=== PATIENT | female | born 1960 | race African-American/Black ===

== ENCOUNTER 2016-07-20 08:47 | Inpatient (IN) | payer OTHER ==
--- NOTE | 2016-07-20 09:13 | HP ---
CIWA Score - CIWA Score Nausea/Vomitin-Mild Nausea/No Vomiting Muscle Tremors: 4-Moderate,w/Arms Extend Anxiety: 4-Mod. Anxious/Guarded Agitation: 1-Slight > Activity Paroxysmal Sweats: 1-Minimal Palms Moist Orientation: 1-Uncertain about Date Tacttile Disturbances: 2-Mild Itch/Numbness/Burn Auditory Disturbances: 1-Very Mild Visual Disturbances: 1-Very Mild Sensitivity Headache: 1-Very Mild CIWA-Ar Total Score: 17 Admission ROS BHS - HPI Chief Complaint: I can't stop using, I need help Allergies/Adverse Reactions: Allergies Allergy/AdvReac Type Severity Reaction Status Date / Time Penicillins Allergy Severe Hives Verified 07/20/16 09:07 History of Present Illness: 55 yo woman here for detox from alcohol and cocaine - history of detox multiple times, no seizures. Last here 04/18/16-05/13/16 for rehab - states she did well for two weeks then relapsed. Exam Limitations: Clinical Condition - Ebola screening Have you traveled outside of the country in the last 21 days: No Have you had contact with anyone from an Ebola affected area: No Do you have a fever: No - Review of Systems Constitutional: Loss of Appetite, Night Sweats, Changes in sleep, Weakness EENT: reports: Blurred Vision Respiratory: reports: No Symptoms reported Cardiac: reports: No Symptoms Reported GI: reports: Nausea : reports: Frequency Musculoskeletal: reports: No Symptoms Reported Integumentary: reports: Dryness Neuro: reports: Headache Endocrine: reports: No Symptoms Reported Hematology: reports: No Symptoms Reported Psychiatric: reports: Judgement Intact, Mood/Affect Appropiate, Anxious, other ( hears voices but they are not telling her to harm herself or others) Other Systems: Reviewed and Negative Patient History - Patient Medical History Hx Anemia: No Hx Asthma: Yes (ON ALBUTEROL) Hx Chronic Obstructive Pulmonary Disease (COPD): No Hx Cancer: No Hx Cardiac Disorders: No Hx Congestive Heart Failure: No Hx Hypertension: No Hx Hypercholesterolemia: No Hx Pacemaker: No HX Cerebrovascular Accident: No Hx Seizures: No Hx Dementia: No Hx Diabetes: No Hx Gastrointestinal Disorders: No Hx Liver Disease: No Hx Genitourinary Disorders: No Hx Sexually Transmitted Disorders: No Hx Renal Disease (ESRD): No Hx Thyroid Disease: No Hx Human Immunodeficiency Virus (HIV): No Hx Hepatitis C: No Hx Depression: Yes Hx Suicide Attempt: Yes Hx Bipolar Disorder: No Hx Schizophrenia: Yes - Patient Surgical History Past Surgical History: Yes Hx Neurologic Surgery: No Hx Cataract Extraction: No Hx Cardiac Surgery: No Hx Lung Surgery: No Hx Breast Surgery: No Hx Breast Biopsy: No Hx Abdominal Surgery: No Hx Appendectomy: No Hx Cholecystectomy: No Hx Genitourinary Surgery: No Hx Section: No Hx Orthopedic Surgery: Yes (right heel surgery 2009 (?) ) Hx Hysterectomy: Yes (2013) Anesthesia Reaction: No - PPD History Previous Implant?: Yes Documented Results: Positive w/proof Implanted On Prior R Admission?: No PPD to be Administered?: No - Reproductive History Patient is a Female of Child Bearing Age (11 -55 yrs old): Yes - Smoking Cessation Smoking history: Current every day smoker Have you smoked in the past 12 months: Yes Aproximately how many cigarettes per day: 10 Cigars Per Day: 0 Hx Chewing Tobacco Use: No Initiated information on smoking cessation: Yes 'Breaking Loose' booklet given: 07/20/16 (given on floor) - Substance & Tx. History Hx Alcohol Use: Yes Hx Substance Use: Yes Substance Use Type: Alcohol, Cocaine Hx Substance Use Treatment: Yes (detox multiple times, rehab) - Substances Abused Alcohol Route: Oral Frequency: Daily Amount used: two 40 oz. HENNESEY; 1/2 pint liquor Age of first use: 16 Date of Last Use: 07/20/16 Cocaine Route: Smoking Frequency: 3-6 times per week Amount used: $50 Age of first use: 23 Date of Last Use: 07/19/16 Family Disease History - Family Disease History Family Disease History: Diabetes: Father (etoh), Other: Father, Mother ( ) Admission Physical Exam BHS - Vital Signs Vital Signs: Vital Signs Period Temp Pulse Resp BP Sys/Mendes Pulse Ox Last 24 Hr 97.7 F 51 20 96/66 - Physical General Appearance: Yes: Nourished, Appropriately Dressed, Mild Distress, Thin, Anxious HEENTM: Yes: Hearing grossly Normal, Normal ENT Inspection, Normocephalic, Normal Voice, Pharynx Normal Respiratory: Yes: Normal Breath Sounds, No Respiratory Distress Neck: Yes: No masses,lesions,Nodules, Supple Breast: Yes: Within Normal Limits Cardiology: Yes: Regular Rhythm, Regular Rate Abdominal: Yes: Flat, Soft Genitourinary: Yes: Frequency Back: Yes: Normal Inspection Musculoskeletal: Yes: full range of Motion, Gait Steady Extremities: Yes: Normal Inspection, Normal Range of Motion, Tremors Neurological: Yes: Fully Oriented, Alert, Motor Strength 5/5, Normal Mood/Affect Integumentary: Yes: Normal Color, Warm Lymphatic: Yes: Within Normal Limits - Addiitonal Findings: URINE DRUG SCREEN RESULTS Drug Screen Negative No Urine Drug Screen Results THC-Marijuana,MARGO-Cocaine,BZO-Benzodiazepines - Diagnostic (1) Alcohol dependence with withdrawal Current Visit: Yes Status: Chronic Qualifiers: Complication of substance-induced condition: uncomplicated Qualified Code(s): F10.230 - Alcohol dependence with withdrawal, uncomplicated (2) Asthma Current Visit: Yes Status: Chronic Qualifiers: Asthma severity: mild persistent Asthma complication type: with status asthmaticus Qualified Code(s): J45.32 - Mild persistent asthma with status asthmaticus (3) Cocaine dependence Current Visit: Yes Status: Chronic Qualifiers: Substance use status: uncomplicated Qualified Code(s): F14.20 - Cocaine dependence, uncomplicated (4) Nicotine dependence Current Visit: Yes Status: Chronic Qualifiers: Nicotine product type: cigarettes Substance use status: uncomplicated Qualified Code(s): F17.210 - Nicotine dependence, cigarettes, uncomplicated Cleared for Admission BHS - Detox or Rehab S Level of Care: Medically Managed Detox Regimen/Protocol: Librium S Breath Alcohol Content Breath Alcohol Content: 0
[2016-07-20 09:42] VITALS: BMI 19.2
[2016-07-20] MEDS ORDERED: LOPERAMIDE HCL 2 MG CAPSULE PO PRN (09:56)
[2016-07-20] MEDS ORDERED: MAG HYDROX/AL HYDROX/SIMETH 30 ML UNIT-DOSE CUP PO PRN (09:56)
[2016-07-20] MEDS ORDERED: chlordiazePOXIDE HCL 25 MG CAPSULE PO ONE ×2 (09:56→15:00)
[2016-07-20] MEDS ORDERED: MAGNESIUM CITRATE 300 ML BOTTLE PO PRN (09:56)
[2016-07-20] MEDS ORDERED: ACETAMINOPHEN 325 MG TABLET (FP) PO PRN (09:56)
[2016-07-20] MEDS ORDERED: diphenhydrAMINE HCL 50 MG CAPSULE PO PRN (09:56)
[2016-07-20] MEDS ORDERED: P-EPHED 60MG/TRIPROLIDI 2.5MG TABLET PO PRN (09:56)
[2016-07-20] MEDS ORDERED: chlordiazePOXIDE HCL 25 MG CAPSULE PO PRN (09:56)
[2016-07-20] MEDS ORDERED: IBUPROFEN 400 MG TABLET (FP) PO PRN (09:56)
[2016-07-20] MEDS ORDERED: MENTHOL/PHENOL 1 EACH UD MM PRN (09:56)
[2016-07-20] MEDS ORDERED: guaiFENesin/D-METHORPHAN HB 10 ML UNIT-DOSE CUPS PO PRN (09:56)
[2016-07-20] MEDS ORDERED: hydrOXYzine PAMOATE 50 MG CAPSULE (FP) PO PRN (09:56)
[2016-07-20] MEDS ORDERED: MAGNESIUM HYDROX 2400MG/30ML ORAL SUSPENSION 30 ML CUP PO PRN (09:56)
[2016-07-20] MEDS ORDERED: ALBUTEROL SO4 6.7 GM HFA INHALER IH PRN (09:57)
[2016-07-20] MEDS: PRENATAL VITAMINS W/ FOLIC ACID TABLET (FP) PO SCH (14:38)
--- NOTE | 2016-07-20 16:53 | EKG ---
Test Reason : Blood Pressure : / mmHG Vent. Rate : 055 BPM Atrial Rate : 055 BPM P-R Int : 152 ms QRS Dur : 070 ms QT Int : 424 ms P-R-T Axes : 067 068 062 degrees QTc Int : 405 ms SINUS BRADYCARDIA OTHERWISE NORMAL ECG NO PREVIOUS ECGS AVAILABLE Confirmed by KRISTY SWAIN, SHERRI ([id number]) on 07/20/2016 4:53:19 PM Referred By: Confirmed By:SHERRI WAGNER MD
[2016-07-20] MEDS: chlordiazePOXIDE HCL 25 MG CAPSULE PO SCH ×2 (20:55→22:41)
[2016-07-20] MEDS: THIAMINE HCL 100 MG TABLET (FP) PO SCH (22:41)
[2016-07-21] MEDS: chlordiazePOXIDE HCL 25 MG CAPSULE PO SCH ×4 (08:28→23:15)
[2016-07-21 09:57] LABS: MCH 27.6 pg (25.7-33.7); MCHC 32.6 g/dl (32.0-36.0); MEAN CELL VOLUME 84.9 fl (80-96); MEAN PLT VOLUME 9.1 fl (7.5-11.1); PLATELET COUNT 206 K/MM3 (134-434); RDW 13.5 % (11.6-15.6); WHITE BLOOD COUNT 4.1 K/mm3 (4.0-10.0)
[2016-07-21 10:44] LABS: ALBUMIN 3.3 g/dl (3.4-5.0); ALK PHOS 58 U/L (45-117); ANION GAP 8 (8-16); BILIRUBIN,TOTAL 0.2 mg/dL (0.2-1.0); CALCIUM 9.1 mg/dL (8.5-10.1); CO2 27 mmol/L (21-32); CREATININE 0.9 mg/dL (0.55-1.02); GLUCOSE,RANDOM 81 mg/dL (74-106); SGOT/AST 8 U/L (15-37); SGPT/ALT 13 U/L (12-78)
[2016-07-21] MEDS: PRENATAL VITAMINS W/ FOLIC ACID TABLET (FP) PO SCH (10:45)
--- NOTE | 2016-07-21 13:01 | PN ---
[facility] CIWA - CIWA Score Nausea/Vomitin Muscle Tremors: 3 Anxiety: 3 Agitation: 2 Paroxysmal Sweats: 1-Minimal Palms Moist Orientation: 0-Oriented Tacttile Disturbances: 1-Very Mild Itch/Numbness Auditory Disturbances: 1-Very Mild Visual Disturbances: 1-Very Mild Sensitivity Headache: 2-Mild CIWA-Ar Total Score: 17 BHS Progress Note (SOAP) Subjective: ALERT,IRRITABLE,ANXIOUS,INTERRUPTED SLEEP,TREMOR Objective: 07/21/16 12:58 Vital Signs Temperature 97.1 F L 07/21/16 11:08 Pulse Rate 92 H 07/21/16 11:08 Respiratory Rate 16 07/21/16 11:08 Blood Pressure 129/59 07/21/16 11:08 O2 Sat by Pulse Oximetry (%) EKG SINUS BRADYCARDIA 55/MIN NO CHEST PAIN,NO SOB,NO DIZZINESS Laboratory Last Values WBC 4.1 K/mm3 (4.0-10.0) 07/21/16 07:20 RBC 4.35 M/mm3 (3.60-5.2) 07/21/16 07:20 Hgb 12.0 GM/dL (10.7-15.3) 07/21/16 07:20 Hct 36.9 % (32.4-45.2) 07/21/16 07:20 MCV 84.9 fl (80-96) 07/21/16 07:20 MCHC 32.6 g/dl (32.0-36.0) 07/21/16 07:20 RDW 13.5 % (11.6-15.6) 07/21/16 07:20 Plt Count 206 K/MM3 (134-434) 07/21/16 07:20 MPV 9.1 fl (7.5-11.1) 07/21/16 07:20 Sodium 143 mmol/L (136-145) 07/21/16 07:20 Potassium 4.1 mmol/L (3.5-5.1) 07/21/16 07:20 Chloride 108 mmol/L (98-107) H 07/21/16 07:20 Carbon Dioxide 27 mmol/L (21-32) 07/21/16 07:20 Anion Gap 8 (8-16) 07/21/16 07:20 BUN 9 mg/dL (7-18) 07/21/16 07:20 Creatinine 0.9 mg/dL (0.55-1.02) 07/21/16 07:20 Creat Clearance w eGFR > 60 (>60) 07/21/16 07:20 Random Glucose 81 mg/dL (74-106) 07/21/16 07:20 Calcium 9.1 mg/dL (8.5-10.1) 07/21/16 07:20 Total Bilirubin 0.2 mg/dL (0.2-1.0) 07/21/16 07:20 AST 8 U/L (15-37) L D 07/21/16 07:20 ALT 13 U/L (12-78) D 07/21/16 07:20 Alkaline Phosphatase 58 U/L (45-117) 07/21/16 07:20 Total Protein 6.0 g/dl (6.4-8.2) L 07/21/16 07:20 Albumin 3.3 g/dl (3.4-5.0) L 07/21/16 07:20 RPR Titer Nonreactive (NONREACTIVE) 07/21/16 07:20 Assessment: 07/21/16 13:00 WITHDRAWAL SYMPTOM Plan: CONTINUE DETOX
[2016-07-21] MEDS: THIAMINE HCL 100 MG TABLET (FP) PO SCH (23:15)
[2016-07-22] MEDS: chlordiazePOXIDE HCL 25 MG CAPSULE PO SCH ×2 (06:25→10:41)
[2016-07-22] MEDS: PRENATAL VITAMINS W/ FOLIC ACID TABLET (FP) PO SCH (10:40)
--- NOTE | 2016-07-22 11:13 | PN ---
S CIWA - CIWA Score Nausea/Vomitin-No Nausea/No Vomiting Muscle Tremors: 4-Moderate,w/Arms Extend Anxiety: 4-Mod. Anxious/Guarded Agitation: 4-Moderately Restless Paroxysmal Sweats: 3 Orientation: 0-Oriented Tacttile Disturbances: 0-None Auditory Disturbances: 0-None Visual Disturbances: 0-None Headache: 0-None Present CIWA-Ar Total Score: 15 BHS Progress Note (SOAP) Subjective: irritable agitation sweats interrupted sleep Objective: 07/22/16 11:12 Vital Signs Temperature 97.8 F 07/22/16 10:21 Pulse Rate 58 L 07/22/16 10:21 Respiratory Rate 18 07/22/16 10:21 Blood Pressure 103/65 07/22/16 10:21 O2 Sat by Pulse Oximetry (%) Laboratory Tests 07/21/16 07/21/16 07/21/16 07:20 07:20 07:20 WBC 4.1 RBC 4.35 Hgb 12.0 Hct 36.9 MCV 84.9 MCHC 32.6 RDW 13.5 Plt Count 206 MPV 9.1 Sodium 143 Potassium 4.1 Chloride 108 H Carbon Dioxide 27 Anion Gap 8 BUN 9 Creatinine 0.9 Creat Clearance w eGFR > 60 Random Glucose 81 Calcium 9.1 Total Bilirubin 0.2 AST 8 L D ALT 13 D Alkaline Phosphatase 58 Total Protein 6.0 L Albumin 3.3 L RPR Titer Nonreactive awake/alert ambulating no acute distress Assessment: 07/22/16 11:12 withdrawal sx Plan: continue detox increase fluids
[2016-07-22] MEDS: chlordiazePOXIDE 5 MG CAPSULE PO SCH ×2 (18:03→22:44)
[2016-07-22] MEDS: THIAMINE HCL 100 MG TABLET (FP) PO SCH (22:43)
[2016-07-23] MEDS: chlordiazePOXIDE 5 MG CAPSULE PO SCH ×2 (06:11→11:13)
[2016-07-23] MEDS: PRENATAL VITAMINS W/ FOLIC ACID TABLET (FP) PO SCH (11:13)
--- NOTE | 2016-07-23 12:52 | CONSULT ---
[facility] Psychiatric Consult - Data Date of interview: 07/23/16 Admission source: [facility] Identifying data: Readmission to [facility] for this 55 y/o AA female seeking detox treatment on for alcohol,cocaine and cannabis dependence.Patient is single without children,domiciled,unemployed and supported on SSI benefits. Substance Abuse History: - Smoking Cessation. Smoking history: Current every day smoker. Have you smoked in the past 12 months: Yes. Aproximately how many cigarettes per day: 10. Cigars Per Day: 0. Hx Chewing Tobacco Use: No. Initiated information on smoking cessation: Yes. 'Breaking Loose' booklet given : 07/20/16 (given on floor). - Substance & Tx. History. Hx Alcohol Use: Yes. Hx Substance Use: Yes. Substance Use Type: Alcohol, Cocaine. Hx Substance Use Treatment: Yes (detox multiple times, rehab). - Substances Abused. Alcohol. Route: Oral. Frequency: Daily. Amount used: two 40 oz. HENNESEY; 1/ 2 pint liquor. Age of first use: 16. Date of Last Use: 07/20/16. Cocaine. Route: Smoking. Frequency: 3-6 times per week. Amount used: $50. Age of first use: 23. Date of Last Use: 07/19/16. Confirmed by patient in this interview. Medical History: Bronchial asthma. Psychiatric History: Evasive and guarded historian.History of multiple psychiatric hospitalizations.Diagnosed with PTSD and Paranoid Schizophrenia.Known to [facility].Ms Alston states that she has been prescribed haldol,cogentin,seroquel,invega and prozac.She indicates that she has not seen a psychiatrist for "a little over two years." Patient comments that " they give me a lot of refills." No report of recent OPD care.It appears that,sometimes,the patient utilizes the emergency room at [facility] to get scripts.Noted remote history of suicidal ideation to jump in front of a subway train (years ago). Physical/Sexual Abuse/Trauma History: Not discussed in this interview (patient declines to provide information). Mental Status Exam - Mental Status Exam Alert and Oriented to: Time, Place, Person Cognitive Function: Grossly Intact Patient Appearance: Well Groomed (thin habitus) Mood: Withdrawn, Irritable Affect: Flat Patient Behavior: Fatigued, Guarded, Cooperative (superficially) Speech Pattern: Clear (non spontaneous) Voice Loudness: Normal Thought Process: Goal Oriented Thought Disorder: Bizarre Hallucinations: Denies Suicidal Ideation: Denies Homicidal Ideation: Denies Insight/Judgement: Poor Sleep: Poorly Appetite: Good Muscle strength/Tone: Normal Gait/Station: Normal Psychiatric Findings - Problem List ([place] 1, 2,3) (1) Alcohol dependence with withdrawal Current Visit: Yes Status: Acute Qualifiers: Complication of substance-induced condition: uncomplicated Qualified Code(s): F10.230 - Alcohol dependence with withdrawal, uncomplicated (2) Cocaine dependence Current Visit: Yes Status: Acute Qualifiers: Substance use status: uncomplicated Qualified Code(s): F14.20 - Cocaine dependence, uncomplicated (3) Nicotine dependence Current Visit: Yes Status: Acute Qualifiers: Nicotine product type: cigarettes Substance use status: uncomplicated Qualified Code(s): F17.210 - Nicotine dependence, cigarettes, uncomplicated (4) Schizophrenia Current Visit: Yes Status: Chronic Qualifiers: Schizophrenia type: paranoid schizophrenia Qualified Code(s): F20.0 - Paranoid schizophrenia Comment: By history. (5) Asthma Current Visit: Yes Status: Chronic Qualifiers: Asthma severity: mild persistent Asthma complication type: with status asthmaticus Qualified Code(s): J45.32 - Mild persistent asthma with status asthmaticus - Initial Treatment Plan Initial Treatment Plan: Psychoeducation Detoxification.Medications : prozac 10 mg po daily + haldol 5 mg po bid + cogentin 1 mg po bid + zolpidem 5 mg po hs prn.Side effects/benefits of each of these drugs discussed with the patient.Made aware of abnormal involuntary movement disorders (dystonias, dyskinesias,neuroleptic malignant syndrome,akathisia),anticholinergic manifestations (blurred vision,constipation,urinary retention) and parasomnias ( zolpidem).She agrees to take the medications.Observation.Previous records were reviewed and pharmacy claims revisited.
[2016-07-23] MEDS: chlordiazePOXIDE HCL 10 MG CAPSULE PO SCH ×2 (17:29→22:59)
[2016-07-23] MEDS ORDERED: ZOLPIDEM TARTRATE 5 MG TABLET PO PRN (22:00)
[2016-07-23] MEDS ORDERED: BENZTROPINE MESYLATE 1 MG TABLET (FP) PO SCH (22:00)
[2016-07-23] MEDS ORDERED: HALOPERIDOL 5 MG TABLET (FP) PO SCH (22:00)
[2016-07-23 22:57] LABS: URINE APPEARANCE CLEAR; URINE BILIRUBIN NEGATIVE (NEGATIVE); URINE BLOOD NEGATIVE (NEGATIVE); URINE COLOR STRAW; URINE GLUCOSE (UA) NEGATIVE (NEGATIVE); URINE KETONE NEGATIVE (NEGATIVE); URINE LEUK ESTERASE NEGATIVE (NEGATIVE); URINE NITRITE NEGATIVE (NEGATIVE); URINE PROTEIN NEGATIVE (NEGATIVE); URINE UROBILINOGEN NEGATIVE E.U./dl (0.2-1.0)
[2016-07-23] MEDS: THIAMINE HCL 100 MG TABLET (FP) PO SCH (22:59)
[2016-07-24] MEDS: chlordiazePOXIDE HCL 10 MG CAPSULE PO SCH (06:28)
--- NOTE | 2016-07-24 08:28 | PN ---
S Progress Note (SOAP) Subjective: alert,no complaint Objective: 07/24/16 08:27 Vital Signs Temperature 97.2 F L 07/24/16 06:00 Pulse Rate 50 L 07/24/16 06:00 Respiratory Rate 18 07/24/16 06:00 Blood Pressure 89/48 07/24/16 06:00 O2 Sat by Pulse Oximetry (%) Assessment: 07/24/16 08:27 detox completed,no withdrawal symptom Plan: discharge today,follow up with after care program as arrangement
--- NOTE | 2016-07-24 08:33 | DS ---
[facility] Detox Discharge Summary Admission Date: 07/20/16 Discharge Date: 07/24/16 - History Present History: Alcohol Dependence, Cocaine Dependence Additional Comments: [facility] and pmd for medical problem, and own psychiatrist for follow up Pertinent Past History: asthma positive ppd schizophrenia - Physical Exam Results Vital Signs: Vital Signs Temperature 97.2 F L 07/24/16 06:00 Pulse Rate 50 L 07/24/16 06:00 Respiratory Rate 18 07/24/16 06:00 Blood Pressure 89/48 07/24/16 06:00 O2 Sat by Pulse Oximetry (%) Pertinent Admission Physical Exam Findings: withdrawal symptom - Treatment Hospital Course: Detox Protocol Followed, Detoxed Safely, Responded well, Discharged Condition Good Patient has Accepted a Rehab Referral to: declined - Medication Discharge Medications: Ambulatory Orders Benztropine Mesylate [Cogentin -] 1 mg PO DAILY 03/28/16 Fluoxetine HCl [Prozac -] 10 mg PO DAILY 03/28/16 Haloperidol [Haldol -] 10 mg PO BID 03/28/16 Trazodone HCl [Desyrel -] 100 mg PO HS #30 tablet 05/12/16 Benztropine Mesylate [Cogentin -] 1 mg PO DAILY #30 tablet 07/23/16 Fluoxetine HCl [Prozac] 10 mg PO DAILY #30 capsule 07/23/16 Haloperidol [Haldol -] 5 mg PO BID #60 tablet 07/23/16 Albuterol Sulfate Inhaler - [Ventolin HFA Inhaler -] 2 inh IH Q6H PRN #1 inhaler 07/24/16 - AMA Did Patient Leave Against Medical Advice: No
[2016-07-24] MEDS ORDERED: FLUoxetine HCL 10 MG CAPSULE (FP) PO SCH (10:00)
[2016-07-24] MEDS ORDERED: FLUoxetine HCL 20 MG CAPSULE (FP) PO SCH (10:00)
[2016-07-24 10:20] VITALS: BP 103/63; PULSE 69; TEMP 98.4
== END 2016-07-24 10:08 | disposition home or self-care (01) | DRG 774 ==
LOC: YASAS 08:47 → Y3N 12:57 → Y6N 13:38
PROVIDERS: ADMIT Internal Medicine; ATTEND Internal Medicine
PROC: HZ2ZZZZ Detoxification Services for Substance Abuse Treatment (ICD-10-PCS; principal; 2016-07-24)
DX: F10.230 Alcohol dependence with withdrawal, uncomplicated (principal); F14.20 Cocaine dependence, uncomplicated; F17.210 Nicotine dependence, cigarettes, uncomplicated; F20.0 Paranoid schizophrenia; J45.32 Mild persistent asthma with status asthmaticus
CPT/HCPCS: 36415; 80053; 81003; 85027; 86593; 93005; 93010

== ENCOUNTER 2016-09-05 09:12 | Inpatient (IN) | payer OTHER ==
[2016-09-05 10:09] VITALS: BMI 19.7
--- NOTE | 2016-09-05 12:30 | HP ---
CIWA Score - CIWA Score Nausea/Vomitin-Mild Nausea/No Vomiting Muscle Tremors: 4-Moderate,w/Arms Extend Anxiety: 4-Mod. Anxious/Guarded Agitation: 4-Moderately Restless Paroxysmal Sweats: 3 Orientation: 0-Oriented Tacttile Disturbances: 0-None Auditory Disturbances: 0-None Visual Disturbances: 0-None Headache: 0-None Present CIWA-Ar Total Score: 16 Admission ROS BHS - HPI Chief Complaint: Withdrawal sx. Allergies/Adverse Reactions: Allergies Allergy/AdvReac Type Severity Reaction Status Date / Time Penicillins Allergy Severe Hives Verified 09/05/16 10:20 History of Present Illness: 56 y/o woman with a long hx. of alcoholism is admitted for detox. Pt. has been in previous detox,reports 2 yrs. sobriety. Exam Limitations: No Limitations - Ebola screening Have you traveled outside of the country in the last 21 days: No Have you had contact with anyone from an Ebola affected area: No Have you been sick,other than usual withdrawal symptoms: No Do you have a fever: No - Review of Systems Constitutional: Diaphoresis EENT: reports: No Symptoms Reported Respiratory: reports: No Symptoms reported Cardiac: reports: No Symptoms Reported GI: reports: Nausea, Abdominal cramping : reports: No Symptoms Reported Musculoskeletal: reports: No Symptoms Reported Integumentary: reports: Sweating Neuro: reports: Tremors Endocrine: reports: No Symptoms Reported Hematology: reports: No Symptoms Reported Psychiatric: reports: No Sypmtoms Reported Other Systems: Reviewed and Negative Patient History - Patient Medical History Hx Anemia: No Hx Asthma: Yes Hx Chronic Obstructive Pulmonary Disease (COPD): No Hx Cancer: No Hx Cardiac Disorders: No Hx Congestive Heart Failure: No Hx Hypertension: No Hx Hypercholesterolemia: No Hx Pacemaker: No HX Cerebrovascular Accident: No Hx Seizures: No Hx Dementia: No Hx Diabetes: No Hx Gastrointestinal Disorders: No Hx Liver Disease: No Hx Genitourinary Disorders: No Hx Sexually Transmitted Disorders: No Hx Renal Disease (ESRD): No Hx Thyroid Disease: No Hx Human Immunodeficiency Virus (HIV): No Hx Hepatitis C: No Hx Depression: Yes Hx Suicide Attempt: Yes (cut left arm at the age 51) Hx Bipolar Disorder: No Hx Schizophrenia: Yes - Patient Surgical History Past Surgical History: Yes Hx Neurologic Surgery: No Hx Cataract Extraction: No Hx Cardiac Surgery: No Hx Lung Surgery: No Hx Breast Surgery: No Hx Breast Biopsy: No Hx Abdominal Surgery: No Hx Appendectomy: No Hx Cholecystectomy: No Hx Genitourinary Surgery: No Hx Section: No Hx Orthopedic Surgery: Yes (right heel surgery 2009 (?) ) Hx Hysterectomy: Yes (2013) Anesthesia Reaction: No - PPD History Previous Implant?: Yes Documented Results: Positive w/o proof PPD to be Administered?: No - Reproductive History Patient is a Female of Child Bearing Age (11 -55 yrs old): No Patient : No - Smoking Cessation Smoking history: Current every day smoker Have you smoked in the past 12 months: Yes Aproximately how many cigarettes per day: 4 Cigars Per Day: 0 Hx Chewing Tobacco Use: No Initiated information on smoking cessation: Yes 'Breaking Loose' booklet given: 09/05/16 - Substance & Tx. History Hx Alcohol Use: Yes Hx Substance Use: Yes Substance Use Type: Alcohol, Cocaine, Marijuana Hx Substance Use Treatment: Yes (Detox) - Substances Abused Crack Route: Smoking Frequency: 1-3 times last 30 days Amount used: $40 Age of first use: 25 Date of Last Use: 09/04/16 Alcohol-shelley Route: Oral Frequency: 3-6 times per week Amount used: 1 pt. Age of first use: 17 Date of Last Use: 09/05/16 Marijuana Route: Smoking Frequency: 1-2 times per week Amount used: $10 Age of first use: 17 Date of Last Use: 09/04/16 Family Disease History - Family Disease History Family Disease History: Diabetes: Father (etoh), Other: Father, Mother ( ) Admission Physical Exam S - Vital Signs Vital Signs: Vital Signs - 24 hr 09/05/16 10:07 Temperature 98.7 F Pulse Rate 68 Respiratory 16 Rate Blood Pressure 94/62 - Physical General Appearance: Yes: Tremorous, Anxious HEENTM: Yes: Within Normal Limits Respiratory: Yes: Chest Non-Tender, Lungs Clear, Normal Breath Sounds Neck: Yes: Supple Cardiology: Yes: Regular Rhythm, Regular Rate, S1, S2 Abdominal: Yes: Normal Bowel Sounds, Non Tender, Soft Genitourinary: Yes: Within Normal Limits Back: Yes: Within Normal Limits Extremities: Yes: Tremors Neurological: Yes: Fully Oriented, Alert Integumentary: Yes: Within Normal Limits Lymphatic: Yes: Within Normal Limits - Diagnostic (1) Alcohol dependence with withdrawal Current Visit: Yes Status: Acute Qualifiers: Complication of substance-induced condition: uncomplicated Qualified Code(s): F10.230 - Alcohol dependence with withdrawal, uncomplicated (2) Nicotine dependence Current Visit: Yes Status: Acute Qualifiers: Nicotine product type: cigarettes Substance use status: uncomplicated Qualified Code(s): F17.210 - Nicotine dependence, cigarettes, uncomplicated (3) Asthma Current Visit: Yes Status: Chronic Qualifiers: Asthma severity: mild persistent Asthma complication type: uncomplicated Qualified Code(s): J45.30 - Mild persistent asthma, uncomplicated Cleared for Admission BHS - Detox or Rehab [facility] Level of Care: Medically Managed Detox Regimen/Protocol: Librium [facility] Breath Alcohol Content Breath Alcohol Content: 0 Urine Pregancy Test - Result Urine Test Results: Negative- NO Line Present Urine Drug Screen - Results Drug Screen Negative: No Urine Drug Screen Results: THC-Marijuana, MARGO-Cocaine
[2016-09-05] MEDS ORDERED: hydrOXYzine PAMOATE 50 MG CAPSULE (FP) PO PRN (12:36)
[2016-09-05] MEDS ORDERED: NICOTINE POLACRILEX 2 MG GUM BUC PRN (12:36)
[2016-09-05] MEDS ORDERED: MAG HYDROX/AL HYDROX/SIMETH 30 ML UNIT-DOSE CUP PO PRN (12:36)
[2016-09-05] MEDS ORDERED: MAGNESIUM HYDROX 2400MG/30ML ORAL SUSPENSION 30 ML CUP PO PRN (12:36)
[2016-09-05] MEDS ORDERED: IBUPROFEN 400 MG TABLET (FP) PO PRN (12:36)
[2016-09-05] MEDS ORDERED: diphenhydrAMINE HCL 50 MG CAPSULE PO PRN (12:36)
[2016-09-05] MEDS ORDERED: ACETAMINOPHEN 325 MG TABLET (FP) PO PRN (12:36)
[2016-09-05] MEDS ORDERED: MAGNESIUM CITRATE 300 ML BOTTLE PO PRN (12:36)
[2016-09-05] MEDS ORDERED: guaiFENesin/D-METHORPHAN HB 10 ML UNIT-DOSE CUPS PO PRN (12:36)
[2016-09-05] MEDS ORDERED: LOPERAMIDE HCL 2 MG CAPSULE PO PRN (12:36)
[2016-09-05] MEDS ORDERED: MENTHOL/PHENOL 1 EACH UD MM PRN (12:36)
[2016-09-05] MEDS ORDERED: chlordiazePOXIDE HCL 25 MG CAPSULE PO PRN (12:36)
[2016-09-05] MEDS ORDERED: P-EPHED 60MG/TRIPROLIDI 2.5MG TABLET PO PRN (12:36)
[2016-09-05] MEDS ORDERED: ALBUTEROL SO4 6.7 GM HFA INHALER IH PRN (12:38)
[2016-09-05] MEDS ORDERED: chlordiazePOXIDE HCL 25 MG CAPSULE PO ONE (12:41)
--- NOTE | 2016-09-05 14:14 | CONSULT ---
[facility] Psychiatric Consult - Data Date of interview: 09/05/16 Admission source: [facility] Identifying data: This is 56 years old female with Schizophrenia intoxicated with: Alcohol, Cocaine, Cannabis and Nicotine Substance Abuse History: - Smoking Cessation. Smoking history: Current every day smoker. Have you smoked in the past 12 months: Yes. Aproximately how many cigarettes per day: 4. Cigars Per Day: 0. Hx Chewing Tobacco Use: No. Initiated information on smoking cessation: Yes. 'Breaking Loose' booklet given : 09/05/16. - Substance & Tx. History. Hx Alcohol Use: Yes. Hx Substance Use : Yes. Substance Use Type: Alcohol, Cocaine, Marijuana. Hx Substance Use Treatment: Yes (Detox). - Substances Abused. Crack. Route: Smoking. Frequency: 1-3 times last 30 days. Amount used: $40. Age of first use: 25. Date of Last Use: 09/04/16. Alcohol-shelley. Route: Oral. Frequency: 3-6 times per week. Amount used: 1 pt. Age of first use: 17. Date of Last Use: . Marijuana. Route: Smoking. Frequency: 1-2 times per week. Amount used: $10. Age of first use: 17. Date of Last Use: Medical History: Asthma, Weight loss history, HepC+, Psychiatric History: Patient reports history of Schizophrenia, reports most recent psychiatric admission on [address] [facility], reports taking prior to admission: Haldol 10mg po bid. Cogentin 1mg poqd. Trazodone 100mg po qhs. Prozac 10mg poqd. Seroquel 100mg po qhs Physical/Sexual Abuse/Trauma History: Denies Additional Comment: Haldol 10mg po bid. Cogentin 1mg poqd. Trazodone 100mg po qhs. Prozac 10mg poqd. Seroquel 100mg po qhs Mental Status Exam - Mental Status Exam Alert and Oriented to: Person Cognitive Function: Fair Patient Appearance: Unkempt Mood: Nervous, Anxious Affect: Flat Patient Behavior: Sedated, Guarded Speech Pattern: Delayed Voice Loudness: Moderately Soft/Quiet Thought Process: Circumstantial Thought Disorder: Being Controlled Hallucinations: Denies Suicidal Ideation: Denies Homicidal Ideation: Denies Insight/Judgement: Fair Sleep: Difficulty falling asleep Appetite: Weight gain Muscle strength/Tone: Mild Hypotonicity Gait/Station: Shuffling Additional Comments: Haldol 10mg po bid. Cogentin 1mg poqd. Trazodone 100mg po qhs. Prozac 10mg poqd. Seroquel 100mg po qhs Psychiatric Findings - Problem List ([place] 1, 2,3) (1) Alcohol dependence with withdrawal Current Visit: Yes Status: Acute Qualifiers: Complication of substance-induced condition: uncomplicated Qualified Code(s): F10.230 - Alcohol dependence with withdrawal, uncomplicated (2) Nicotine dependence Current Visit: Yes Status: Acute Qualifiers: Nicotine product type: cigarettes Substance use status: uncomplicated Qualified Code(s): F17.210 - Nicotine dependence, cigarettes, uncomplicated (3) Cocaine dependence Current Visit: No Status: Acute Qualifiers: Substance use status: uncomplicated Qualified Code(s): F14.20 - Cocaine dependence, uncomplicated (4) Cocaine dependence in controlled environment Current Visit: No Status: Chronic (5) Marijuana dependence Current Visit: No Status: Chronic (6) Schizophrenia Current Visit: No Status: Chronic Qualifiers: Schizophrenia type: paranoid schizophrenia Qualified Code(s): F20.0 - Paranoid schizophrenia Comment: By history. - Initial Treatment Plan Initial Treatment Plan: Haldol 10mg po bid. Cogentin 1mg poqd. Trazodone 100mg po qhs. Prozac 10mg poqd. Seroquel 100mg po qhs
[2016-09-05] MEDS: NICOTINE 7 MG/24 HOURS TOPICAL PATCH TD SCH (14:20)
[2016-09-05] MEDS: BENZTROPINE MESYLATE 1 MG TABLET (FP) PO SCH (16:58)
[2016-09-05] MEDS: chlordiazePOXIDE HCL 25 MG CAPSULE PO SCH ×2 (18:12→22:48)
[2016-09-05] MEDS: traZODone HCL 100 MG TABLET (FP) PO SCH (22:48)
[2016-09-05] MEDS: HALOPERIDOL 5 MG TABLET (FP) PO SCH (22:48)
[2016-09-05] MEDS: THIAMINE HCL 100 MG TABLET (FP) PO SCH (22:49)
[2016-09-05] MEDS: QUEtiapine FUMARATE 100 MG TABLET (FP) PO SCH (22:49)
[2016-09-06] MEDS: chlordiazePOXIDE HCL 25 MG CAPSULE PO SCH ×4 (06:24→22:44)
[2016-09-06] MEDS: PRENATAL VITAMINS W/ FOLIC ACID TABLET (FP) PO SCH (10:09)
[2016-09-06] MEDS: BENZTROPINE MESYLATE 1 MG TABLET (FP) PO SCH (10:09)
[2016-09-06] MEDS: FLUoxetine HCL 10 MG CAPSULE (FP) PO SCH (10:09)
[2016-09-06 10:10] LABS: MCH 28.2 pg (25.7-33.7); MCHC 32.9 g/dl (32.0-36.0); MEAN CELL VOLUME 85.8 fl (80-96); MEAN PLT VOLUME 9.9 fl (7.5-11.1); PLATELET COUNT 238 K/MM3 (134-434); RDW 14.3 % (11.6-15.6)
--- NOTE | 2016-09-06 10:26 | EKG ---
Test Reason : Blood Pressure : / mmHG Vent. Rate : 049 BPM Atrial Rate : 049 BPM P-R Int : 178 ms QRS Dur : 082 ms QT Int : 440 ms P-R-T Axes : 070 070 064 degrees QTc Int : 397 ms SINUS BRADYCARDIA WHEN COMPARED WITH ECG OF 20-JUL-2016 14:10, NO SIGNIFICANT CHANGE WAS FOUND Confirmed by RUBEN BOWMAN MD ([id number]) on 09/06/2016 10:25:40 AM Referred By: Alistair Alcala Confirmed By:RUBEN BOWMAN MD
[2016-09-06] MEDS: HALOPERIDOL 5 MG TABLET (FP) PO SCH ×2 (11:05→22:43)
[2016-09-06] MEDS: NICOTINE 7 MG/24 HOURS TOPICAL PATCH TD SCH (11:06)
[2016-09-06 11:23] LABS: ALBUMIN 3.9 g/dl (3.4-5.0); CALCIUM 9.5 mg/dL (8.5-10.1)
[2016-09-06 11:27] LABS: BILIRUBIN,TOTAL 0.3 mg/dL (0.2-1.0); TOT PROT 7.1 g/dl (6.4-8.2)
--- NOTE | 2016-09-06 13:33 | PN ---
S CIWA - CIWA Score Nausea/Vomitin Muscle Tremors: 3 Anxiety: 3 Agitation: 3 Paroxysmal Sweats: 1-Minimal Palms Moist Orientation: 0-Oriented Tacttile Disturbances: 1-Very Mild Itch/Numbness Auditory Disturbances: 1-Very Mild Visual Disturbances: 1-Very Mild Sensitivity Headache: 2-Mild CIWA-Ar Total Score: 18 BHS Progress Note (SOAP) Subjective: ALERT,IRRITABLE,ANXIOUS,INTERRUPTED SLEEP,TREMOR Objective: 09/06/16 13:29 Vital Signs Temperature 97.6 F 09/06/16 06:55 Pulse Rate 66 09/06/16 06:55 Respiratory Rate 16 09/06/16 06:55 Blood Pressure 102/60 09/06/16 06:55 O2 Sat by Pulse Oximetry (%) EKG SINUS BRADYCARDIA,RATE 49/MIN,NO CHEST PAIN,NO SOB,NO DIZZINESS Laboratory Last Values WBC 7.0 K/mm3 (4.0-10.0) D 09/06/16 06:00 RBC 4.05 M/mm3 (3.60-5.2) 09/06/16 06:00 Hgb 11.4 GM/dL (10.7-15.3) 09/06/16 06:00 Hct 34.7 % (32.4-45.2) 09/06/16 06:00 MCV 85.8 fl (80-96) 09/06/16 06:00 MCHC 32.9 g/dl (32.0-36.0) 09/06/16 06:00 RDW 14.3 % (11.6-15.6) 09/06/16 06:00 Plt Count 238 K/MM3 (134-434) 09/06/16 06:00 MPV 9.9 fl (7.5-11.1) 09/06/16 06:00 Sodium 141 mmol/L (136-145) 09/06/16 06:00 Potassium 4.2 mmol/L (3.5-5.1) 09/06/16 06:00 Chloride 103 mmol/L (98-107) 09/06/16 06:00 Carbon Dioxide 27 mmol/L (21-32) 09/06/16 06:00 Anion Gap 11 (8-16) 09/06/16 06:00 BUN 13 mg/dL (7-18) D 09/06/16 06:00 Creatinine 1.0 mg/dL (0.55-1.02) 09/06/16 06:00 Creat Clearance w eGFR 57.35 (>60) 09/06/16 06:00 Random Glucose 78 mg/dL (74-106) 09/06/16 06:00 Calcium 9.5 mg/dL (8.5-10.1) 09/06/16 06:00 Total Bilirubin 0.3 mg/dL (0.2-1.0) D 09/06/16 06:00 AST 22 U/L (15-37) D 09/06/16 06:00 ALT 18 U/L (12-78) D 09/06/16 06:00 Alkaline Phosphatase 76 U/L (45-117) D 09/06/16 06:00 Total Protein 7.1 g/dl (6.4-8.2) 09/06/16 06:00 Albumin 3.9 g/dl (3.4-5.0) 09/06/16 06:00 RPR Titer Nonreactive (NONREACTIVE) 09/06/16 06:00 Assessment: 09/06/16 13:33 WITHDRAWAL SYMPTOM Plan: CONTINUE DETOX
[2016-09-06] MEDS: traZODone HCL 100 MG TABLET (FP) PO SCH (22:43)
[2016-09-06] MEDS: THIAMINE HCL 100 MG TABLET (FP) PO SCH (22:44)
[2016-09-06] MEDS: QUEtiapine FUMARATE 100 MG TABLET (FP) PO SCH (22:44)
[2016-09-07] MEDS: chlordiazePOXIDE HCL 25 MG CAPSULE PO SCH ×2 (06:51→10:56)
[2016-09-07] MEDS: BENZTROPINE MESYLATE 1 MG TABLET (FP) PO SCH (10:55)
[2016-09-07] MEDS: HALOPERIDOL 5 MG TABLET (FP) PO SCH ×2 (10:56→22:54)
[2016-09-07] MEDS: PRENATAL VITAMINS W/ FOLIC ACID TABLET (FP) PO SCH (10:56)
[2016-09-07] MEDS: FLUoxetine HCL 10 MG CAPSULE (FP) PO SCH (10:56)
[2016-09-07] MEDS: NICOTINE 7 MG/24 HOURS TOPICAL PATCH TD SCH (10:57)
--- NOTE | 2016-09-07 12:26 | PN ---
S CIWA - CIWA Score Nausea/Vomitin Muscle Tremors: 3 Anxiety: 2 Agitation: 2 Paroxysmal Sweats: 1-Minimal Palms Moist Orientation: 0-Oriented Tacttile Disturbances: 1-Very Mild Itch/Numbness Auditory Disturbances: 1-Very Mild Visual Disturbances: 1-Very Mild Sensitivity Headache: 2-Mild CIWA-Ar Total Score: 16 BHS Progress Note (SOAP) Subjective: ALERT,IRRITABLE,ANXIOUS,INTERRUPTED SLEEP,TREMOR Objective: 09/07/16 12:26 Vital Signs Temperature 98.4 F 09/07/16 10:04 Pulse Rate 60 09/07/16 10:04 Respiratory Rate 16 09/07/16 10:04 Blood Pressure 102/54 09/07/16 10:04 O2 Sat by Pulse Oximetry (%) Assessment: 09/07/16 12:26 WITHDRAWAL SYMPTOM Plan: CONTINUE DETOX
[2016-09-07] MEDS: chlordiazePOXIDE 5 MG CAPSULE PO SCH ×2 (17:11→22:54)
[2016-09-07] MEDS: traZODone HCL 100 MG TABLET (FP) PO SCH (22:53)
[2016-09-07] MEDS: THIAMINE HCL 100 MG TABLET (FP) PO SCH (22:54)
[2016-09-07] MEDS: QUEtiapine FUMARATE 100 MG TABLET (FP) PO SCH (22:54)
[2016-09-08] MEDS: chlordiazePOXIDE 5 MG CAPSULE PO SCH ×2 (07:32→11:00)
[2016-09-08] MEDS: BENZTROPINE MESYLATE 1 MG TABLET (FP) PO SCH (10:56)
[2016-09-08] MEDS: PRENATAL VITAMINS W/ FOLIC ACID TABLET (FP) PO SCH (10:56)
[2016-09-08] MEDS: HALOPERIDOL 5 MG TABLET (FP) PO SCH ×2 (10:56→21:11)
[2016-09-08] MEDS: FLUoxetine HCL 10 MG CAPSULE (FP) PO SCH (11:00)
[2016-09-08] MEDS: NICOTINE 7 MG/24 HOURS TOPICAL PATCH TD SCH (11:01)
--- NOTE | 2016-09-08 16:16 | PN ---
S Progress Note (SOAP) Subjective: Sweating, interrupted sleep, anxious Objective: 09/08/16 16:13 Last Vital Signs Temp Pulse Resp BP Pulse Ox 98.2 F 52 L 16 97/60 09/08/16 14:05 09/08/16 14:59 09/08/16 14:59 09/08/16 14:59 Laboratory Tests 09/06/16 09/06/16 09/06/16 06:00 06:00 06:00 WBC 7.0 D RBC 4.05 Hgb 11.4 Hct 34.7 MCV 85.8 MCHC 32.9 RDW 14.3 Plt Count 238 MPV 9.9 Sodium 141 Potassium 4.2 Chloride 103 Carbon Dioxide 27 Anion Gap 11 BUN 13 D Creatinine 1.0 Creat Clearance w eGFR 57.35 Random Glucose 78 Calcium 9.5 Total Bilirubin 0.3 D AST 22 D ALT 18 D Alkaline Phosphatase 76 D Total Protein 7.1 Albumin 3.9 RPR Titer Nonreactive Labs noted Assessment: 09/08/16 16:13 Withdrawal symptoms Noted with hypotension Plan: Continue detox Hypotension: asymptomatic, encouraged to drink lots of water and ambulate, librium held this am, continue to monitor
[2016-09-08] MEDS: chlordiazePOXIDE HCL 10 MG CAPSULE PO SCH ×2 (17:25→22:43)
[2016-09-08 17:26] LABS: URINE APPEARANCE CLEAR; URINE BILIRUBIN NEGATIVE (NEGATIVE); URINE BLOOD NEGATIVE (NEGATIVE); URINE COLOR YELLOW; URINE GLUCOSE (UA) NEGATIVE (NEGATIVE); URINE KETONE NEGATIVE (NEGATIVE); URINE LEUK ESTERASE NEGATIVE (NEGATIVE); URINE NITRITE NEGATIVE (NEGATIVE); URINE PROTEIN NEGATIVE (NEGATIVE); URINE UROBILINOGEN NEGATIVE E.U./dl (0.2-1.0)
[2016-09-08] MEDS: traZODone HCL 100 MG TABLET (FP) PO SCH (21:11)
[2016-09-08] MEDS: QUEtiapine FUMARATE 100 MG TABLET (FP) PO SCH (21:11)
[2016-09-08] MEDS: THIAMINE HCL 100 MG TABLET (FP) PO SCH (21:14)
[2016-09-09] MEDS: chlordiazePOXIDE HCL 10 MG CAPSULE PO SCH ×2 (06:24→11:00)
--- NOTE | 2016-09-09 09:20 | DS ---
[facility] Detox Discharge Summary Admission Date: 09/05/16 Discharge Date: 09/09/16 - History Present History: Alcohol Dependence, Cannabis Dependence, Cocaine Dependence - Physical Exam Results Vital Signs: Vital Signs Temperature 97.9 F 09/08/16 22:06 Pulse Rate 49 L 09/08/16 22:06 Respiratory Rate 18 09/09/16 03:30 Blood Pressure 82/64 09/08/16 22:06 O2 Sat by Pulse Oximetry (%) - Treatment Hospital Course: Detox Protocol Followed, Detoxed Safely, Responded well, Discharged Condition Good - Medication Discharge Medications: Ambulatory Orders Benztropine Mesylate [Cogentin -] 1 mg PO DAILY 03/28/16 Fluoxetine HCl [Prozac -] 10 mg PO DAILY 03/28/16 Haloperidol [Haldol -] 10 mg PO BID 03/28/16 Trazodone HCl [Desyrel -] 100 mg PO HS #30 tablet 05/12/16 Albuterol Sulfate Inhaler - [Ventolin HFA Inhaler -] 2 inh IH Q4H PRN 09/05/16 Benztropine Mesylate [Cogentin -] 1 mg PO DAILY #30 tablet 09/05/16 Fluoxetine HCl [Prozac -] 10 mg PO DAILY #30 capsule 09/05/16 Fluoxetine HCl [Prozac -] 10 mg PO DAILY #30 tablet 09/05/16 Haloperidol [Haldol -] 10 mg PO BID #60 tablet 09/05/16 Quetiapine Fumarate [Seroquel] 100 mg PO HS #30 tablet 09/05/16 Trazodone HCl [Desyrel -] 100 mg PO HS #30 tablet 09/05/16 - Diagnosis (1) Alcohol dependence with withdrawal Current Visit: Yes Status: Chronic Qualifiers: Complication of substance-induced condition: uncomplicated Qualified Code(s): F10.230 - Alcohol dependence with withdrawal, uncomplicated (2) Nicotine dependence Current Visit: Yes Status: Chronic Qualifiers: Nicotine product type: cigarettes Substance use status: uncomplicated Qualified Code(s): F17.210 - Nicotine dependence, cigarettes, uncomplicated (3) Asthma Current Visit: Yes Status: Chronic Qualifiers: Asthma severity: mild persistent Asthma complication type: uncomplicated Qualified Code(s): J45.30 - Mild persistent asthma, uncomplicated (4) Cocaine dependence Current Visit: Yes Status: Chronic Qualifiers: Substance use status: uncomplicated Qualified Code(s): F14.20 - Cocaine dependence, uncomplicated (5) Cocaine dependence in controlled environment Current Visit: Yes Status: Chronic (6) Marijuana dependence Current Visit: Yes Status: Chronic (7) Schizophrenia Current Visit: Yes Status: Chronic Qualifiers: Schizophrenia type: paranoid schizophrenia Qualified Code(s): F20.0 - Paranoid schizophrenia (8) Constipation Current Visit: Yes Status: Suspected Qualifiers: Constipation type: unspecified constipation type Qualified Code(s): K59.00 - Constipation, unspecified - AMA Did Patient Leave Against Medical Advice: No
[2016-09-09] MEDS: PRENATAL VITAMINS W/ FOLIC ACID TABLET (FP) PO SCH (10:17)
[2016-09-09] MEDS: FLUoxetine HCL 10 MG CAPSULE (FP) PO SCH (10:18)
[2016-09-09] MEDS: BENZTROPINE MESYLATE 1 MG TABLET (FP) PO SCH (10:18)
[2016-09-09] MEDS: NICOTINE 7 MG/24 HOURS TOPICAL PATCH TD SCH (10:18)
[2016-09-09 10:33] VITALS: BP 100/64; PULSE 57; TEMP 99.1
[2016-09-09] MEDS: HALOPERIDOL 5 MG TABLET (FP) PO SCH (11:00)
== END 2016-09-09 11:37 | disposition home or self-care (01) | DRG 774 ==
LOC: YASAS 09:12 → Y6N 10:56
PROVIDERS: ADMIT Internal Medicine Addiction Medicine; ATTEND Internal Medicine Addiction Medicine
PROC: HZ2ZZZZ Detoxification Services for Substance Abuse Treatment (ICD-10-PCS; principal; 2016-09-05)
DX: F10.230 Alcohol dependence with withdrawal, uncomplicated (principal); F14.20 Cocaine dependence, uncomplicated; F12.20 Cannabis dependence, uncomplicated; F17.210 Nicotine dependence, cigarettes, uncomplicated; F20.0 Paranoid schizophrenia; J45.30 Mild persistent asthma, uncomplicated; K59.00 Constipation, unspecified; R00.1 Bradycardia, unspecified; I95.9 Hypotension, unspecified; Z91.5 Personal history of self-harm
CPT/HCPCS: 36415; 80053; 81003; 85027; 86593; 93005; 93010

== ENCOUNTER 2016-11-15 15:57 | Inpatient (IN) | payer OTHER ==
[2016-11-15 18:31] VITALS: BMI 19.0
[2016-11-15] MEDS ORDERED: MAGNESIUM HYDROX 2400MG/30ML ORAL SUSPENSION 30 ML CUP PO PRN (20:49)
[2016-11-15] MEDS ORDERED: ACETAMINOPHEN 325 MG TABLET (FP) PO PRN (20:49)
[2016-11-15] MEDS ORDERED: LOPERAMIDE HCL 2 MG CAPSULE PO PRN (20:49)
[2016-11-15] MEDS ORDERED: guaiFENesin/D-METHORPHAN HB 10 ML UNIT-DOSE CUPS PO PRN (20:49)
[2016-11-15] MEDS ORDERED: chlordiazePOXIDE HCL 25 MG CAPSULE PO PRN (20:49)
[2016-11-15] MEDS ORDERED: MAG HYDROX/AL HYDROX/SIMETH 30 ML UNIT-DOSE CUP PO PRN (20:49)
[2016-11-15] MEDS ORDERED: P-EPHED 60MG/TRIPROLIDI 2.5MG TABLET PO PRN (20:49)
[2016-11-15] MEDS ORDERED: IBUPROFEN 400 MG TABLET (FP) PO PRN (20:49)
[2016-11-15] MEDS ORDERED: MENTHOL/PHENOL 1 EACH UD MM PRN (20:49)
[2016-11-15] MEDS ORDERED: hydrOXYzine PAMOATE 50 MG CAPSULE (FP) PO PRN (20:49)
[2016-11-15] MEDS ORDERED: diphenhydrAMINE HCL 50 MG CAPSULE PO PRN (20:49)
[2016-11-15] MEDS ORDERED: NICOTINE POLACRILEX 2 MG GUM BC PRN (20:49)
[2016-11-15] MEDS ORDERED: MAGNESIUM CITRATE 300 ML BOTTLE PO PRN (20:49)
--- NOTE | 2016-11-15 20:49 | HP ---
CIWA Score - CIWA Score Nausea/Vomitin-Mild Nausea/No Vomiting Muscle Tremors: 4-Moderate,w/Arms Extend Anxiety: 4-Mod. Anxious/Guarded Agitation: 4-Moderately Restless Paroxysmal Sweats: 1-Minimal Palms Moist Orientation: 1-Uncertain about Date Tacttile Disturbances: 0-None Auditory Disturbances: 0-None Visual Disturbances: 0-None Headache: 0-None Present CIWA-Ar Total Score: 15 Admission ROS BHS - HPI Chief Complaint: WITHDRAWAL SX Allergies/Adverse Reactions: Allergies Allergy/AdvReac Type Severity Reaction Status Date / Time Penicillins Allergy Severe Hives Verified 11/15/16 19:42 History of Present Illness: 56 YEARS OLD FEMALE WITH LONG HISTORY OF ALCOHOL COCAINE MARIJUANA NICOTINE DEPENDENCE HAS ASTHMA AND SCHIZOPHRENIA IS ADMITTED TO DETOX Exam Limitations: No Limitations - Ebola screening Have you traveled outside of the country in the last 21 days: No Have you had contact with anyone from an Ebola affected area: No Have you been sick,other than usual withdrawal symptoms: No Do you have a fever: No - Review of Systems Constitutional: Chills, Loss of Appetite, Changes in sleep, Unintentional Wgt. Loss, Unexplained wgt Loss EENT: reports: No Symptoms Reported Respiratory: reports: SOB with Exertion Cardiac: reports: No Symptoms Reported GI: reports: Nausea, Poor Appetite, Poor Fluid Intake, Abdominal cramping : reports: No Symptoms Reported Musculoskeletal: reports: No Symptoms Reported Integumentary: reports: No Symptoms Reported Neuro: reports: Tremors Endocrine: reports: No Symptoms Reported Hematology: reports: No Symptoms Reported Psychiatric: reports: Judgement Intact Other Systems: Reviewed and Negative Patient History - Patient Medical History Hx Anemia: No Hx Asthma: Yes Hx Chronic Obstructive Pulmonary Disease (COPD): No Hx Cancer: No Hx Cardiac Disorders: No Hx Congestive Heart Failure: No Hx Hypertension: No Hx Hypercholesterolemia: No Hx Pacemaker: No HX Cerebrovascular Accident: No Hx Seizures: No Hx Dementia: No Hx Diabetes: No Hx Gastrointestinal Disorders: No Hx Liver Disease: No Hx Genitourinary Disorders: No Hx Sexually Transmitted Disorders: No Hx Renal Disease (ESRD): No Hx Thyroid Disease: No Hx Human Immunodeficiency Virus (HIV): No Hx Hepatitis C: No Hx Depression: No Hx Suicide Attempt: Yes (cut left arm at the age 51) Hx Bipolar Disorder: No Hx Schizophrenia: Yes - Patient Surgical History Past Surgical History: Yes Hx Neurologic Surgery: No Hx Cataract Extraction: No Hx Cardiac Surgery: No Hx Lung Surgery: No Hx Breast Surgery: No Hx Breast Biopsy: No Hx Abdominal Surgery: No Hx Appendectomy: No Hx Cholecystectomy: No Hx Genitourinary Surgery: No Hx Section: No Hx Orthopedic Surgery: Yes (right heel surgery 2009 (?) ) Hx Hysterectomy: Yes (2013) Anesthesia Reaction: No - PPD History Previous Implant?: Yes Documented Results: Positive w/proof Implanted On Prior [facility] Admission?: No PPD to be Administered?: No - Reproductive History Patient is a Female of Child Bearing Age (11 -55 yrs old): No Patient : No - Smoking Cessation Smoking history: Current every day smoker Have you smoked in the past 12 months: Yes Aproximately how many cigarettes per day: 10 Cigars Per Day: 0 Hx Chewing Tobacco Use: No Initiated information on smoking cessation: Yes 'Breaking Loose' booklet given: 11/15/16 - Substance & Tx. History Hx Alcohol Use: Yes Hx Substance Use: Yes Substance Use Type: Alcohol, Cocaine, Marijuana Hx Substance Use Treatment: Yes - Substances Abused Alcohol Route: Oral Frequency: Daily Amount used: liquor- 1 pint, beer-m 1 six pack Age of first use: 15 Date of Last Use: 11/14/16 Cocaine Route: Smoking Frequency: Daily Amount used: 3 bags Age of first use: 22 Date of Last Use: 11/14/16 Marijuana/Hashish Route: Smoking Frequency: Daily Amount used: 4 blunts Age of first use: 18 Date of Last Use: 11/14/16 Family Disease History - Family Disease History Family Disease History: Diabetes: Father (etoh), Other: Father, Mother ( ) Admission Physical Exam S - Vital Signs Vital Signs: Vital Signs - 24 hr 11/15/16 18:27 Temperature 98.9 F Pulse Rate 89 Respiratory 20 Rate Blood Pressure 122/66 - Physical General Appearance: Yes: Appropriately Dressed, Mild Distress, Thin, Tremorous, Irritable, Sweating, Anxious HEENTM: Yes: Hearing grossly Normal, Normal ENT Inspection, Normocephalic, Normal Voice Respiratory: Yes: Chest Non-Tender, Lungs Clear, Normal Breath Sounds, No Respiratory Distress, No Accessory Muscle Use Neck: Yes: Supple, Trachea in good position Breast: Yes: Breasts Symetrical Cardiology: Yes: Regular Rhythm, Regular Rate, S1, S2 Abdominal: Yes: Non Tender, Soft Genitourinary: Yes: Within Normal Limits Back: Yes: Normal Inspection Musculoskeletal: Yes: full range of Motion, Gait Steady Extremities: Yes: Normal Inspection, Normal Range of Motion, Non-Tender, Tremors Neurological: Yes: Alert, Motor Strength 5/5, Normal Response, Depressed Affect Integumentary: Yes: Warm Lymphatic: Yes: Within Normal Limits - Diagnostic (1) Alcohol dependence with withdrawal Current Visit: Yes Status: Acute Qualifiers: Complication of substance-induced condition: uncomplicated Qualified Code(s): F10.230 - Alcohol dependence with withdrawal, uncomplicated (2) Asthma Current Visit: Yes Status: Chronic Qualifiers: Asthma severity: mild intermittent Asthma complication type: uncomplicated Qualified Code(s): J45.20 - Mild intermittent asthma, uncomplicated (3) Nicotine dependence Current Visit: Yes Status: Acute Qualifiers: Nicotine product type: cigarettes Substance use status: in withdrawal Qualified Code(s): F17.213 - Nicotine dependence, cigarettes, with withdrawal (4) Schizophrenia Current Visit: Yes Status: Suspected Qualifiers: Schizophrenia type: paranoid schizophrenia Qualified Code(s): F20.0 - Paranoid schizophrenia Comment: By history. (5) Weight loss Current Visit: Yes Status: Acute (6) Cocaine dependence, uncomplicated Current Visit: Yes Status: Chronic (7) Cannabis dependence, uncomplicated Current Visit: Yes Status: Chronic (8) Positive PPD, treated Current Visit: Yes Status: Resolved Cleared for Admission [facility] - Detox or Rehab [facility] Level of Care: Medically Managed Detox Regimen/Protocol: Librium [facility] Breath Alcohol Content Breath Alcohol Content: 0 Urine Pregancy Test - Result Urine Test Results: Negative- NO Line Present Urine Drug Screen - Results Drug Screen Negative: No Urine Drug Screen Results: THC-Marijuana, MARGO-Cocaine
[2016-11-15] MEDS ORDERED: ALBUTEROL SO4 6.7 GM HFA INHALER IH PRN (20:51)
[2016-11-15] MEDS: chlordiazePOXIDE HCL 25 MG CAPSULE PO SCH (22:19)
[2016-11-15] MEDS: THIAMINE HCL 100 MG TABLET (FP) PO SCH (22:20)
[2016-11-16] MEDS: chlordiazePOXIDE HCL 25 MG CAPSULE PO SCH ×4 (07:14→22:22)
[2016-11-16] MEDS: NICOTINE 14 MG/24 HOURS TOPICAL PATCH TD SCH (10:30)
[2016-11-16] MEDS: PRENATAL VITAMINS W/ FOLIC ACID TABLET (FP) PO SCH (10:30)
[2016-11-16 10:45] LABS: ALBUMIN 3.1 g/dl (3.4-5.0); BILIRUBIN,TOTAL 0.3 mg/dL (0.2-1.0); CALCIUM 8.7 mg/dL (8.5-10.1); COCKROFT - GAULT 49.929; MCH 28.3 pg (25.7-33.7); MEAN CELL VOLUME 85.8 fl (80-96); MEAN PLT VOLUME 9.9 fl (7.5-11.1); PLATELET COUNT 186 K/MM3 (134-434); RDW 14.1 % (11.6-15.6); TOT PROT 6.3 g/dl (6.4-8.2); WHITE BLOOD COUNT 5.6 K/mm3 (4.0-10.0)
--- NOTE | 2016-11-16 11:21 | PN ---
S CIWA - CIWA Score Nausea/Vomitin-No Nausea/No Vomiting Muscle Tremors: 4-Moderate,w/Arms Extend Anxiety: 3 Agitation: 3 Paroxysmal Sweats: 3 Orientation: 0-Oriented Tacttile Disturbances: 0-None Auditory Disturbances: 0-None Visual Disturbances: 0-None Headache: 0-None Present CIWA-Ar Total Score: 13 BHS Progress Note (SOAP) Subjective: Anxiety,tremors,sweating,interrupted sleep,restless Objective: 11/16/16 11:19 Vital Signs - 8 hr 11/16/16 03:30 Respiratory 16 Rate Vital Signs - 24 hr 11/15/16 11/15/16 11/16/16 18:27 21:48 00:30 Temperature 98.9 F 97.5 F L Pulse Rate 89 73 Respiratory 20 20 18 Rate Blood Pressure 122/66 111/61 11/16/16 03:30 Temperature Pulse Rate Respiratory 16 Rate Blood Pressure Laboratory Results - last 24 hr 11/16/16 11/16/16 07:00 07:00 WBC 5.6 RBC 4.14 Hgb 11.7 Hct 35.6 MCV 85.8 MCHC 33.0 RDW 14.1 Plt Count 186 D MPV 9.9 Sodium 140 Potassium 4.0 Chloride 106 Carbon Dioxide 25 Anion Gap 9 BUN 12 Creatinine 1.0 Creat Clearance w eGFR 57.35 Random Glucose 139 H D Calcium 8.7 Total Bilirubin 0.3 AST 34 D ALT 32 D Alkaline Phosphatase 68 Total Protein 6.3 L Albumin 3.1 L D labs noted Assessment: 11/16/16 11:20 Withdrawal sx. Plan: Continue detox
[2016-11-16 15:03] LABS: URINE APPEARANCE CLEAR; URINE BILIRUBIN NEGATIVE (NEGATIVE); URINE BLOOD NEGATIVE (NEGATIVE); URINE COLOR YELLOW; URINE GLUCOSE (UA) NEGATIVE (NEGATIVE); URINE KETONE TRACE (NEGATIVE); URINE LEUK ESTERASE NEGATIVE (NEGATIVE); URINE NITRITE NEGATIVE (NEGATIVE); URINE PROTEIN NEGATIVE (NEGATIVE); URINE UROBILINOGEN 2.0 E.U/dl E.U./dl (0.2-1.0)
--- NOTE | 2016-11-16 16:38 | CONSULT ---
[facility] Psychiatric Consult - Data Date of interview: 11/16/16 Admission source: [facility] Identifying data: Another admission to [facility] for this 56 y/o AA female seeking detox treatment on for alcohol,cocaine and cannabis dependence.Patient is single without children,domiciled,unemployed and supported on SSI benefits. Substance Abuse History: - Smoking Cessation. Smoking history: Current every day smoker. Have you smoked in the past 12 months: Yes. Aproximately how many cigarettes per day: 10. Cigars Per Day: 0. Hx Chewing Tobacco Use: No. Initiated information on smoking cessation: Yes. 'Breaking Loose' booklet given : 11/15/16. - Substance & Tx. History. Hx Alcohol Use: Yes. Hx Substance Use : Yes. Substance Use Type: Alcohol, Cocaine, Marijuana. Hx Substance Use Treatment: Yes. - Substances Abused. Alcohol. Route: Oral. Frequency: Daily. Amount used: liquor- 1 pint, beer-m 1 six pack. Age of first use: 15. Date of Last Use: 11/14/16. Cocaine. Route: Smoking. Frequency: Daily. Amount used: 3 bags. Age of first use: 22. Date of Last Use: 11/14/16. Marijuana/Hashish. Route: Smoking. Frequency: Daily. Amount used: 4 blunts. Age of first use: 18. Date of Last Use: 11/14/16. Confirmed by patient. Medical History: Bronchial asthma. Psychiatric History: History of multiple psychiatric hospitalizations ([facility], [facility]).Diagnosed with Paranoid Schizophrenia.Ms Alston declares that she is prescribed haldol, cogentin,seroquel and prozac.She states that she gets outpatient psychiatric services at [facility]." Not sure " about the date of last medications intake.Patient is not a reliable historian (has no idea about the doses of her medications).No report of recent OPD care.Noted remote history of suicidal ideation to jump in front of a subway train (years ago) and self- mutilation.. Physical/Sexual Abuse/Trauma History: No information. Additional Comment: Urine Drug Screen Results: THC-Marijuana, MARGO-Cocaine.Noted. Mental Status Exam - Mental Status Exam Alert and Oriented to: Time, Place, Person Cognitive Function: Grossly Intact Patient Appearance: Unkempt, Disheveled (thin habitus) Mood: Withdrawn Affect: Blunted Patient Behavior: Fatigued, Guarded Speech Pattern: Clear Voice Loudness: Normal Thought Process: Goal Oriented Thought Disorder: Bizarre Hallucinations: Denies Suicidal Ideation: Denies Homicidal Ideation: Denies Insight/Judgement: Poor Sleep: Fair Appetite: Fair Muscle strength/Tone: Normal Gait/Station: Normal Psychiatric Findings - Problem List ([place] 1, 2,3) (1) Schizophrenia Current Visit: Yes Status: Chronic Qualifiers: Schizophrenia type: paranoid schizophrenia Qualified Code(s): F20.0 - Paranoid schizophrenia Comment: By history. (2) Alcohol dependence with withdrawal Current Visit: Yes Status: Acute Qualifiers: Complication of substance-induced condition: uncomplicated Qualified Code(s): F10.230 - Alcohol dependence with withdrawal, uncomplicated (3) Cannabis dependence, uncomplicated Current Visit: Yes Status: Acute (4) Cocaine dependence, uncomplicated Current Visit: Yes Status: Acute (5) Nicotine dependence Current Visit: Yes Status: Acute Qualifiers: Nicotine product type: cigarettes Substance use status: in withdrawal Qualified Code(s): F17.213 - Nicotine dependence, cigarettes, with withdrawal (6) Weight loss Current Visit: Yes Status: Chronic (7) Asthma Current Visit: Yes Status: Chronic Qualifiers: Asthma severity: mild intermittent Asthma complication type: uncomplicated Qualified Code(s): J45.20 - Mild intermittent asthma, uncomplicated (8) Positive PPD, treated Current Visit: Yes Status: Resolved - Initial Treatment Plan Initial Treatment Plan: Psychoeducation.Detoxification in progress.Medications : haldol 5 mg po hs + cogentin 1 mg po hs.Side effects/benefits are discussed with patient.She is made aware of potential for abnormal involuntary movements, dystonias,akathisia,dyskinesias,neuroleptic malignant syndrome from use of haldol /anticholinergic complications (dry mouth,blurred vision,urinary hesitancy,constipation from utilization of cogentin.Patient states that she tolerates these medications.No prior history of adverse events.Patient is in agreement with this plan of care.Pharmacy claims are reviewed.Confirms prior exposure to haldol and cogentin.Previous records are also revisited and support (with patient's request) the addition of haldol/cogention to the current regimen.Observation.
--- NOTE | 2016-11-16 19:23 | EKG ---
Test Reason : Blood Pressure : / mmHG Vent. Rate : 050 BPM Atrial Rate : 050 BPM P-R Int : 136 ms QRS Dur : 082 ms QT Int : 446 ms P-R-T Axes : 075 076 066 degrees QTc Int : 406 ms SINUS BRADYCARDIA WITH SINUS ARRHYTHMIA OTHERWISE NORMAL ECG WHEN COMPARED WITH ECG OF 05-SEP-2016 12:49, NO SIGNIFICANT CHANGE WAS FOUND Confirmed by JULIA GUDINO MD ([id number]) on 11/16/2016 7:23:09 PM Referred By: Confirmed By:JULIA GUDINO MD
[2016-11-16] MEDS: HALOPERIDOL 5 MG TABLET (FP) PO SCH (22:22)
[2016-11-16] MEDS: THIAMINE HCL 100 MG TABLET (FP) PO SCH (22:22)
[2016-11-16] MEDS: BENZTROPINE MESYLATE 1 MG TABLET (FP) PO SCH (22:22)
[2016-11-17] MEDS: chlordiazePOXIDE HCL 25 MG CAPSULE PO SCH ×3 (07:04→19:18)
[2016-11-17] MEDS: PRENATAL VITAMINS W/ FOLIC ACID TABLET (FP) PO SCH (10:33)
[2016-11-17] MEDS: NICOTINE 14 MG/24 HOURS TOPICAL PATCH TD SCH (10:35)
--- NOTE | 2016-11-17 11:23 | PN ---
[facility] CIWA - CIWA Score Nausea/Vomitin-No Nausea/No Vomiting Muscle Tremors: 3 Anxiety: 3 Agitation: 4-Moderately Restless Paroxysmal Sweats: 3 Orientation: 0-Oriented Tacttile Disturbances: 0-None Auditory Disturbances: 0-None Visual Disturbances: 0-None Headache: 0-None Present CIWA-Ar Total Score: 13 BHS Progress Note (SOAP) Subjective: Anxiety,tremors,sweating,interrupted sleep,restless. Objective: 11/17/16 11:24 Vital Signs - 8 hr 11/17/16 11/17/16 11/17/16 03:30 06:00 09:46 Temperature 97.9 F 97.2 F L Pulse Rate 52 L 74 Respiratory 18 16 20 Rate Blood Pressure 96/62 122/71 Laboratory Last Values WBC 5.6 K/mm3 (4.0-10.0) 11/16/16 07:00 RBC 4.14 M/mm3 (3.60-5.2) 11/16/16 07:00 Hgb 11.7 GM/dL (10.7-15.3) 11/16/16 07:00 Hct 35.6 % (32.4-45.2) 11/16/16 07:00 MCV 85.8 fl (80-96) 11/16/16 07:00 MCHC 33.0 g/dl (32.0-36.0) 11/16/16 07:00 RDW 14.1 % (11.6-15.6) 11/16/16 07:00 Plt Count 186 K/MM3 (134-434) D 11/16/16 07:00 MPV 9.9 fl (7.5-11.1) 11/16/16 07:00 Sodium 140 mmol/L (136-145) 11/16/16 07:00 Potassium 4.0 mmol/L (3.5-5.1) 11/16/16 07:00 Chloride 106 mmol/L (98-107) 11/16/16 07:00 Carbon Dioxide 25 mmol/L (21-32) 11/16/16 07:00 Anion Gap 9 (8-16) 11/16/16 07:00 BUN 12 mg/dL (7-18) 11/16/16 07:00 Creatinine 1.0 mg/dL (0.55-1.02) 11/16/16 07:00 Creat Clearance w eGFR 57.35 (>60) 11/16/16 07:00 Random Glucose 139 mg/dL (74-106) H D 11/16/16 07:00 Calcium 8.7 mg/dL (8.5-10.1) 11/16/16 07:00 Total Bilirubin 0.3 mg/dL (0.2-1.0) 11/16/16 07:00 AST 34 U/L (15-37) D 11/16/16 07:00 ALT 32 U/L (12-78) D 11/16/16 07:00 Alkaline Phosphatase 68 U/L (45-117) 11/16/16 07:00 Total Protein 6.3 g/dl (6.4-8.2) L 11/16/16 07:00 Albumin 3.1 g/dl (3.4-5.0) L D 11/16/16 07:00 Urine Color Yellow 11/15/16 09:03 Urine Appearance Clear 11/15/16 09:03 Urine pH 6.0 (5.0-8.0) 11/15/16 09:03 Ur Specific [place] 1.025 (1.005-1.025) 11/15/16 09:03 Urine Protein Negative (NEGATIVE) 11/15/16 09:03 Urine Glucose (UA) Negative (NEGATIVE) 11/15/16 09:03 Urine Ketones Trace (NEGATIVE) H 11/15/16 09:03 Urine Blood Negative (NEGATIVE) 11/15/16 09:03 Urine Nitrite Negative (NEGATIVE) 11/15/16 09:03 Urine Bilirubin Negative (NEGATIVE) 11/15/16 09:03 Urine Urobilinogen 2.0 e.u/dl E.U./dl (0.2-1.0) H 11/15/16 09:03 Ur Leukocyte Esterase Negative (NEGATIVE) 11/15/16 09:03 labs noted Assessment: 11/17/16 11:25 Withdrawal sx. Plan: Continue detox
[2016-11-17] MEDS: BENZTROPINE MESYLATE 1 MG TABLET (FP) PO SCH (22:29)
[2016-11-17] MEDS: THIAMINE HCL 100 MG TABLET (FP) PO SCH (22:29)
[2016-11-17] MEDS: HALOPERIDOL 5 MG TABLET (FP) PO SCH (22:29)
[2016-11-17] MEDS: chlordiazePOXIDE 5 MG CAPSULE PO SCH (22:30)
[2016-11-18] MEDS: chlordiazePOXIDE 5 MG CAPSULE PO SCH ×3 (05:45→17:20)
--- NOTE | 2016-11-18 09:19 | PN ---
S Progress Note (SOAP) Subjective: ALERT,IRRITABLE,ANXIOUS,INTERRUPTED SLEEP Objective: 11/18/16 09:18 Vital Signs Temperature 97.5 F L 11/17/16 17:52 Pulse Rate 72 11/17/16 17:52 Respiratory Rate 18 11/18/16 06:35 Blood Pressure 90/60 11/17/16 17:52 O2 Sat by Pulse Oximetry (%) Assessment: 11/18/16 09:18 WITHDRAWAL SYMPTOM Plan: CONTINUE DETOX,DISCHARGE IN AM
[2016-11-18] MEDS: NICOTINE 14 MG/24 HOURS TOPICAL PATCH TD SCH (10:27)
[2016-11-18] MEDS: PRENATAL VITAMINS W/ FOLIC ACID TABLET (FP) PO SCH (10:27)
[2016-11-18] MEDS: THIAMINE HCL 100 MG TABLET (FP) PO SCH (22:26)
[2016-11-18] MEDS: BENZTROPINE MESYLATE 1 MG TABLET (FP) PO SCH (22:26)
[2016-11-18] MEDS: HALOPERIDOL 5 MG TABLET (FP) PO SCH (22:26)
[2016-11-18] MEDS: chlordiazePOXIDE HCL 10 MG CAPSULE PO SCH (23:52)
[2016-11-19] MEDS: chlordiazePOXIDE HCL 10 MG CAPSULE PO SCH ×2 (05:20→10:00)
--- NOTE | 2016-11-19 08:26 | PN ---
S Progress Note (SOAP) Subjective: ALERT,NO COMPLAINT Objective: 11/19/16 08:24 Vital Signs Temperature 98.1 F 11/18/16 23:03 Pulse Rate 62 11/18/16 23:03 Respiratory Rate 18 11/19/16 06:24 Blood Pressure 101/75 11/18/16 23:03 O2 Sat by Pulse Oximetry (%) Assessment: 11/19/16 08:25 DETOX COMPLETED,NO WITHDRAWAL SYMPTOM,NO COMPLAINT,NO URINARY PROBLEM Plan: DISCHARGE TODAY,FOLLOW UP WITH AFTER CARE PROGRAM ARRANGEMENT
--- NOTE | 2016-11-19 08:29 | DS ---
[facility] Detox Discharge Summary Admission Date: 11/15/16 Discharge Date: 11/19/16 - History Present History: Alcohol Dependence, Cannabis Dependence, Cocaine Dependence Additional Comments: FOLLOW UP WITH AFTER [facility] PROGRAM ARRANGEMENT AND PMD FOR MEDICAL PROBLEM Pertinent Past History: ASTHMA SCHIZOPHRENIA NICOTINE DEPENDENCE - Physical Exam Results Vital Signs: Vital Signs Temperature 98.1 F 11/18/16 23:03 Pulse Rate 62 11/18/16 23:03 Respiratory Rate 18 11/19/16 06:24 Blood Pressure 101/75 11/18/16 23:03 O2 Sat by Pulse Oximetry (%) Pertinent Admission Physical Exam Findings: WITHDRAWAL SYMPTOM - Treatment Hospital Course: Detox Protocol Followed, Detoxed Safely, Responded well, Discharged Condition Good, Rehab Referral Accepted Patient has Accepted a Rehab Referral to: [facility] - Medication Discharge Medications: Ambulatory Orders Benztropine Mesylate [Cogentin -] 1 mg PO DAILY 03/28/16 Fluoxetine HCl [Prozac -] 10 mg PO DAILY 03/28/16 Haloperidol [Haldol -] 10 mg PO BID 03/28/16 Albuterol Sulfate Inhaler - [Ventolin HFA Inhaler -] 2 inh IH Q4H PRN 09/05/16 Quetiapine Fumarate [Seroquel] 100 mg PO HS #30 tablet 09/05/16 Trazodone HCl [Desyrel -] 100 mg PO HS #30 tablet 09/05/16 Benztropine Mesylate [Cogentin -] 1 mg PO HS #30 tablet 11/16/16 Haloperidol [Haldol -] 5 mg PO HS #30 tablet 11/16/16 - Diagnosis (1) Alcohol dependence with withdrawal Current Visit: Yes Status: Acute Qualifiers: Complication of substance-induced condition: uncomplicated Qualified Code(s): F10.230 - Alcohol dependence with withdrawal, uncomplicated (2) Cannabis dependence, uncomplicated Current Visit: Yes Status: Acute (3) Cocaine dependence, uncomplicated Current Visit: Yes Status: Acute (4) Nicotine dependence Current Visit: Yes Status: Acute Qualifiers: Nicotine product type: cigarettes Substance use status: in withdrawal Qualified Code(s): F17.213 - Nicotine dependence, cigarettes, with withdrawal (5) Asthma Current Visit: Yes Status: Chronic Qualifiers: Asthma severity: mild intermittent Asthma complication type: uncomplicated Qualified Code(s): J45.20 - Mild intermittent asthma, uncomplicated (6) Schizophrenia Current Visit: Yes Status: Chronic Qualifiers: Schizophrenia type: paranoid schizophrenia Qualified Code(s): F20.0 - Paranoid schizophrenia (7) Weight loss Current Visit: Yes Status: Chronic - AMA Did Patient Leave Against Medical Advice: No
[2016-11-19] MEDS: NICOTINE 14 MG/24 HOURS TOPICAL PATCH TD SCH (10:00)
[2016-11-19] MEDS: PRENATAL VITAMINS W/ FOLIC ACID TABLET (FP) PO SCH (10:00)
[2016-11-19 10:31] VITALS: BP 122/68; PULSE 61; TEMP 96.1
== END 2016-11-19 10:13 | disposition home or self-care (01) | DRG 774 ==
LOC: YASAS 15:57 → Y6N 19:43
PROVIDERS: ADMIT Internal Medicine; ATTEND Internal Medicine
PROC: HZ2ZZZZ Detoxification Services for Substance Abuse Treatment (ICD-10-PCS; principal; 2016-11-19)
DX: F10.230 Alcohol dependence with withdrawal, uncomplicated (principal); F14.20 Cocaine dependence, uncomplicated; F12.20 Cannabis dependence, uncomplicated; F17.210 Nicotine dependence, cigarettes, uncomplicated; F20.0 Paranoid schizophrenia; R76.11 Nonspecific reaction to tuberculin skin test without active tuberculosis; R63.4 Abnormal weight loss; Z68.1 Body mass index [BMI] 19.9 or less, adult
CPT/HCPCS: 36415; 80053; 81003; 85027; 86593; 93005; 93010

== ENCOUNTER 2017-01-06 10:05 | Inpatient (IN) | payer OTHER ==
[2017-01-06 12:01] VITALS: BMI 20.9
--- NOTE | 2017-01-06 13:39 | HP ---
CIWA Score - CIWA Score Nausea/Vomitin-No Nausea/No Vomiting Muscle Tremors: 4-Moderate,w/Arms Extend Anxiety: 4-Mod. Anxious/Guarded Agitation: 4-Moderately Restless Paroxysmal Sweats: 3 Orientation: 0-Oriented Tacttile Disturbances: 0-None Auditory Disturbances: 0-None Visual Disturbances: 0-None Headache: 1-Very Mild CIWA-Ar Total Score: 16 Admission ROS BHS - HPI Chief Complaint: I drink too much and need the help. Allergies/Adverse Reactions: Allergies Allergy/AdvReac Type Severity Reaction Status Date / Time Penicillins Allergy Severe Hives Verified 01/06/17 13:36 History of Present Illness: Pt is a 56yr old female with a history of alcohol dependence seeking detox for treatment. Exam Limitations: No Limitations - Ebola screening Have you traveled outside of the country in the last 21 days: No Have you had contact with anyone from an Ebola affected area: No Have you been sick,other than usual withdrawal symptoms: No Do you have a fever: No - Review of Systems Constitutional: No Symptoms Reported EENT: reports: Nose Congestion Respiratory: reports: No Symptoms reported Cardiac: reports: Syncope GI: reports: Poor Fluid Intake : reports: No Symptoms Reported Musculoskeletal: reports: No Symptoms Reported Integumentary: reports: Flushing, Sweating Neuro: reports: Headache, Tingling, Tremors Endocrine: reports: Excessive Sweating, Flushing, Intolerance to Cold, Intolerance to Heat Hematology: reports: No Symptoms Reported Psychiatric: reports: Judgement Intact, Mood/Affect Appropiate, Orientated x3, Agitated, Anxious Other Systems: Reviewed and Negative Patient History - Patient Medical History Hx Anemia: No Hx Asthma: Yes Hx Chronic Obstructive Pulmonary Disease (COPD): No Hx Cancer: No Hx Cardiac Disorders: No Hx Congestive Heart Failure: No Hx Hypertension: No Hx Hypercholesterolemia: No Hx Pacemaker: No HX Cerebrovascular Accident: No Hx Seizures: No Hx Dementia: No Hx Diabetes: No Hx Gastrointestinal Disorders: No Hx Liver Disease: No Hx Genitourinary Disorders: No Hx Sexually Transmitted Disorders: No Hx Renal Disease (ESRD): No Hx Thyroid Disease: No Hx Human Immunodeficiency Virus (HIV): No Hx Hepatitis C: No Hx Depression: No Hx Suicide Attempt: Yes (tried to jump in front of train 6months ago) Hx Bipolar Disorder: No Hx Schizophrenia: Yes Other Medical History: PTSD - Patient Surgical History Past Surgical History: Yes Hx Neurologic Surgery: No Hx Cataract Extraction: No Hx Cardiac Surgery: No Hx Lung Surgery: No Hx Breast Surgery: No Hx Breast Biopsy: No Hx Abdominal Surgery: No Hx Appendectomy: No Hx Cholecystectomy: No Hx Genitourinary Surgery: No Hx Section: No Hx Orthopedic Surgery: Yes (right heel surgery 2009 (?) ) Hx Hysterectomy: Yes (2013) Anesthesia Reaction: No - PPD History Previous Implant?: No Documented Results: Positive w/proof Results: CXR result PPD to be Administered?: No - Reproductive History Patient is a Female of Child Bearing Age (11 -55 yrs old): No - Smoking Cessation Smoking history: Current every day smoker Have you smoked in the past 12 months: Yes Aproximately how many cigarettes per day: 10 Cigars Per Day: 0 Hx Chewing Tobacco Use: No Initiated information on smoking cessation: Yes 'Breaking Loose' booklet given: 01/06/17 - Substance & Tx. History Hx Alcohol Use: Yes Hx Substance Use: Yes Substance Use Type: Alcohol, Cocaine Hx Substance Use Treatment: Yes ([facility]/ [facility] a little over a month ago) - Substances Abused Alcohol Route: Oral Frequency: Daily Amount used: 3 40 Oz BEERS Age of first use: 20 Date of Last Use: 01/04/17 Crack Route: Smoking Frequency: 1-3 times last 30 days Amount used: $200-300 Age of first use: 30 Date of Last Use: 01/03/17 Family Disease History - Family Disease History Family Disease History: Diabetes: Father (etoh), Other: Father, Mother ( ) Admission Physical Exam [facility] - Vital Signs Vital Signs: Vital Signs - 24 hr 01/06/17 11:58 Temperature 96.4 F L Pulse Rate 60 Respiratory 20 Rate Blood Pressure 97/58 - Physical General Appearance: Yes: Appropriately Dressed, Moderate Distress, Tremorous, Irritable, Sweating, Anxious HEENTM: Yes: Normal Voice, Rhinorrhea Respiratory: Yes: Lungs Clear, Normal Breath Sounds, No Respiratory Distress Neck: Yes: Within Normal Limits Breast: Yes: Within Normal Limits Cardiology: Yes: Regular Rhythm, Regular Rate, S1, S2 Abdominal: Yes: Normal Bowel Sounds, Non Tender, Soft Genitourinary: Yes: Within Normal Limits Back: Yes: Normal Inspection Musculoskeletal: Yes: full range of Motion Extremities: Yes: Normal Inspection, Non-Tender, Tremors Neurological: Yes: Fully Oriented, Alert, Normal Response Integumentary: Yes: Normal Color Lymphatic: Yes: Within Normal Limits - Diagnostic (1) Alcohol dependence with withdrawal Current Visit: Yes Status: Chronic Qualifiers: Complication of substance-induced condition: uncomplicated Qualified Code(s): F10.230 - Alcohol dependence with withdrawal, uncomplicated (2) Asthma Current Visit: Yes Status: Chronic Qualifiers: Asthma severity: mild intermittent Asthma complication type: uncomplicated Qualified Code(s): J45.20 - Mild intermittent asthma, uncomplicated (3) Cannabis dependence, uncomplicated Current Visit: Yes Status: Chronic (4) Cocaine dependence, uncomplicated Current Visit: Yes Status: Chronic (5) Nicotine dependence Current Visit: Yes Status: Chronic Qualifiers: Nicotine product type: cigarettes Substance use status: in withdrawal Qualified Code(s): F17.213 - Nicotine dependence, cigarettes, with withdrawal (6) Schizophrenia Current Visit: No Status: Chronic Qualifiers: Schizophrenia type: paranoid schizophrenia Qualified Code(s): F20.0 - Paranoid schizophrenia Comment: By history. Cleared for Admission [facility] - Detox or Rehab [facility] Level of Care: Medically Managed Detox Regimen/Protocol: Librium [facility] Breath Alcohol Content Breath Alcohol Content: 0 Urine Pregancy Test - Result Urine Test Results: Negative- NO Line Present Urine Drug Screen - Results Drug Screen Negative: No Urine Drug Screen Results: THC-Marijuana, MARGO-Cocaine
[2017-01-06] MEDS ORDERED: ACETAMINOPHEN 325 MG TABLET (FP) PO PRN (13:55)
[2017-01-06] MEDS ORDERED: MAG HYDROX/AL HYDROX/SIMETH 30 ML UNIT-DOSE CUP PO PRN (13:55)
[2017-01-06] MEDS ORDERED: MAGNESIUM HYDROX 2400MG/30ML ORAL SUSPENSION 30 ML CUP PO PRN (13:55)
[2017-01-06] MEDS ORDERED: LOPERAMIDE HCL 2 MG CAPSULE PO PRN (13:55)
[2017-01-06] MEDS ORDERED: hydrOXYzine PAMOATE 50 MG CAPSULE (FP) PO PRN (13:55)
[2017-01-06] MEDS ORDERED: NICOTINE POLACRILEX 4 MG GUM BUC PRN (13:55)
[2017-01-06] MEDS ORDERED: IBUPROFEN 400 MG TABLET (FP) PO PRN (13:55)
[2017-01-06] MEDS ORDERED: MENTHOL/PHENOL 1 EACH UD MM PRN (13:55)
[2017-01-06] MEDS ORDERED: guaiFENesin/D-METHORPHAN HB 10 ML UNIT-DOSE CUPS PO PRN (13:55)
[2017-01-06] MEDS ORDERED: MAGNESIUM CITRATE 300 ML BOTTLE PO PRN (13:55)
[2017-01-06] MEDS ORDERED: chlordiazePOXIDE HCL 25 MG CAPSULE PO PRN (13:55)
[2017-01-06] MEDS ORDERED: chlordiazePOXIDE HCL 25 MG CAPSULE PO ONE (15:24)
[2017-01-06] MEDS ORDERED: P-EPHED 60MG/TRIPROLIDI 2.5MG TABLET PO PRN (16:52)
[2017-01-06] MEDS: chlordiazePOXIDE HCL 25 MG CAPSULE PO SCH ×2 (17:00→22:03)
[2017-01-06 17:35] LABS: URINE APPEARANCE CLEAR; URINE BILIRUBIN NEGATIVE (NEGATIVE); URINE BLOOD NEGATIVE (NEGATIVE); URINE COLOR YELLOW; URINE GLUCOSE (UA) NEGATIVE (NEGATIVE); URINE KETONE TRACE (NEGATIVE); URINE LEUK ESTERASE NEGATIVE (NEGATIVE); URINE NITRITE NEGATIVE (NEGATIVE); URINE PROTEIN NEGATIVE (NEGATIVE); URINE UROBILINOGEN NEGATIVE mg/dL (0.2-1.0)
[2017-01-06] MEDS ORDERED: diphenhydrAMINE HCL 50 MG CAPSULE PO PRN (22:00)
[2017-01-06] MEDS: THIAMINE HCL 100 MG TABLET (FP) PO SCH (22:03)
[2017-01-07] MEDS: chlordiazePOXIDE HCL 25 MG CAPSULE PO SCH ×4 (06:03→22:10)
[2017-01-07] MEDS: PRENATAL VITAMINS W/ FOLIC ACID TABLET (FP) PO SCH (10:17)
[2017-01-07] MEDS: NICOTINE 21 MG/24 HOURS TOPICAL PATCH TD SCH (10:17)
[2017-01-07 10:27] LABS: MCH 28.7 pg (25.7-33.7); MCHC 33.1 g/dl (32.0-36.0); MEAN CELL VOLUME 86.9 fl (80-96); PLATELET COUNT 229 K/MM3 (134-434); RDW 15.5 % (11.6-15.6); WHITE BLOOD COUNT 6.2 K/mm3 (4.0-10.0)
[2017-01-07 10:45] LABS: ALBUMIN 3.9 g/dl (3.4-5.0); ALK PHOS 75 U/L (45-117); ANION GAP 10 (8-16); BILIRUBIN,TOTAL 0.3 mg/dL (0.2-1.0); CALCIUM 9.6 mg/dL (8.5-10.1); CO2 26 mmol/L (21-32); GLUCOSE,RANDOM 81 mg/dL (74-106); SGPT/ALT 39 U/L (12-78); TOT PROT 7.7 g/dl (6.4-8.2)
[2017-01-07 10:49] LABS: SGOT/AST 48 U/L (15-37)
--- NOTE | 2017-01-07 11:01 | PN ---
S CIWA - CIWA Score Nausea/Vomitin-No Nausea/No Vomiting Muscle Tremors: 4-Moderate,w/Arms Extend Anxiety: 3 Agitation: 3 Paroxysmal Sweats: 3 Orientation: 0-Oriented Tacttile Disturbances: 0-None Auditory Disturbances: 0-None Visual Disturbances: 0-None Headache: 1-Very Mild CIWA-Ar Total Score: 14 BHS Progress Note (SOAP) Subjective: shakes sweats interrupted sleep agitation Objective: 01/07/17 11:00 Vital Signs Temperature 97.7 F 01/07/17 10:41 Pulse Rate 75 01/07/17 10:41 Respiratory Rate 20 01/07/17 10:41 Blood Pressure 97/61 01/07/17 10:41 O2 Sat by Pulse Oximetry (%) Laboratory Tests 01/06/17 01/07/17 01/07/17 15:30 06:00 06:00 WBC 6.2 RBC 4.23 Hgb 12.1 Hct 36.7 MCV 86.9 MCH 28.7 MCHC 33.1 RDW 15.5 Plt Count 229 D MPV 10.0 Sodium 138 Potassium 4.6 Chloride 102 Carbon Dioxide 26 Anion Gap 10 BUN 13 Creatinine 1.0 Creat Clearance w eGFR 57.35 Random Glucose 81 D Calcium 9.6 Total Bilirubin 0.3 AST 48 H D ALT 39 D Alkaline Phosphatase 75 Total Protein 7.7 D Albumin 3.9 D Urine Color Yellow Urine Appearance Clear Urine pH 5.0 Ur Specific [place] 1.025 Urine Protein Negative Urine Glucose (UA) Negative Urine Ketones Trace H Urine Blood Negative Urine Nitrite Negative Urine Bilirubin Negative Urine Urobilinogen Negative Ur Leukocyte Esterase Negative labs pending awake/alert ambulating no acute distress Assessment: 01/07/17 11:00 withdrawal sx Plan: continue detox increase fluids
--- NOTE | 2017-01-07 11:39 | CONSULT ---
[facility] Psychiatric Consult - Data Date of interview: 01/07/17 Admission source: [facility] Identifying data: Ms Alston is a 56 years old single Black female, unemployed on SSI, domiciled seeking detox treatment for alcohol and cocaine Substance Abuse History: Reports using alcohol and cocaine. She started drinking alcohol at age 20, consumes 3x 40oz of beer daily. Last drink on . She started smoking crack cocaine at age 30, consumes $200-300 worth 1-3 times in the last 30 days. Last smoked on 01/03/17 Medical History: Significant for history of bronchial asthma. Smokes 10 cigarettes daily Psychiatric History: Reports being diagnosed with Paranoid Schizphrenia and PTSD. Reports history of multiple psychiatric admissions to [facility] and [facility]. Most recent one was in November 2016 to [facility] for auditory hallucinations and suicidal ideations. She was discharged on Prozac 10 mg po daily, Haldol 10 mg po BID, Seroquel 100 mg po HS and Trazadone 100 mg po HS. Reports no affiliation to any aftercare at this time. Reports doing well at present. Denies experiencing psychotic symptoms as well as SI/HI Mental Status Exam - Mental Status Exam Alert and Oriented to: Time, Place, Person Cognitive Function: Fair Mood: Hopeful, Euthymic Affect: Appropriate Patient Behavior: Asleep Speech Pattern: Clear Voice Loudness: Normal Thought Process: Intact Thought Disorder: Not Present Hallucinations: Denies Suicidal Ideation: Denies Homicidal Ideation: Denies Insight/Judgement: Fair Sleep: Fair Appetite: Good Muscle strength/Tone: Normal Gait/Station: Normal Psychiatric Findings - Problem List (I[place] 1, 2,3) (1) Paranoid schizophrenia Current Visit: Yes Status: Acute (2) PTSD (post-traumatic stress disorder) Current Visit: Yes Status: Acute (3) Alcohol dependence with withdrawal Current Visit: Yes Status: Chronic Qualifiers: Complication of substance-induced condition: uncomplicated Qualified Code(s): F10.230 - Alcohol dependence with withdrawal, uncomplicated (4) Cocaine dependence, uncomplicated Current Visit: Yes Status: Chronic (5) Nicotine dependence Current Visit: Yes Status: Chronic Qualifiers: Nicotine product type: cigarettes Substance use status: in withdrawal Qualified Code(s): F17.213 - Nicotine dependence, cigarettes, with withdrawal (6) Asthma Current Visit: Yes Status: Chronic Qualifiers: Asthma severity: mild intermittent Asthma complication type: uncomplicated Qualified Code(s): J45.20 - Mild intermittent asthma, uncomplicated - Initial Treatment Plan Initial Treatment Plan: 1) Continue Prozac 10 mg po daily, Haldol 10 mg po BID, Seroquel 100 mg po HS and Trazadone 100 mg po HS prn for insomnia. 2) Continue inpatient detoxification
[2017-01-07] MEDS ORDERED: traZODone HCL 100 MG TABLET (FP) PO PRN (11:44)
[2017-01-07] MEDS: HALOPERIDOL 5 MG TABLET (FP) PO SCH ×2 (14:08→22:10)
[2017-01-07] MEDS: FLUoxetine HCL 10 MG CAPSULE (FP) PO SCH (14:08)
[2017-01-07] MEDS: THIAMINE HCL 100 MG TABLET (FP) PO SCH (22:10)
[2017-01-07] MEDS: QUEtiapine FUMARATE 100 MG TABLET (FP) PO SCH (22:10)
[2017-01-08] MEDS: chlordiazePOXIDE HCL 25 MG CAPSULE PO SCH ×2 (06:27→10:36)
--- NOTE | 2017-01-08 10:32 | PN ---
[facility] CIWA - CIWA Score Nausea/Vomitin-No Nausea/No Vomiting Muscle Tremors: 3 Anxiety: 3 Agitation: 3 Paroxysmal Sweats: 3 Orientation: 0-Oriented Tacttile Disturbances: 0-None Auditory Disturbances: 0-None Visual Disturbances: 0-None Headache: 0-None Present CIWA-Ar Total Score: 12 S Progress Note (SOAP) Subjective: sweats interrupted sleep anxiety Objective: 01/08/17 10:36 Vital Signs Temperature 98.3 F 01/08/17 10:00 Pulse Rate 81 01/08/17 10:00 Respiratory Rate 16 01/08/17 10:00 Blood Pressure 98/71 01/08/17 10:00 O2 Sat by Pulse Oximetry (%) Laboratory Tests 01/06/17 01/07/17 01/07/17 15:30 06:00 06:00 WBC 6.2 RBC 4.23 Hgb 12.1 Hct 36.7 MCV 86.9 MCH 28.7 MCHC 33.1 RDW 15.5 Plt Count 229 D MPV 10.0 Sodium 138 Potassium 4.6 Chloride 102 Carbon Dioxide 26 Anion Gap 10 BUN 13 Creatinine 1.0 Creat Clearance w eGFR 57.35 Random Glucose 81 D Calcium 9.6 Total Bilirubin 0.3 AST 48 H D ALT 39 D Alkaline Phosphatase 75 Total Protein 7.7 D Albumin 3.9 D Urine Color Yellow Urine Appearance Clear Urine pH 5.0 Ur Specific [place] 1.025 Urine Protein Negative Urine Glucose (UA) Negative Urine Ketones Trace H Urine Blood Negative Urine Nitrite Negative Urine Bilirubin Negative Urine Urobilinogen Negative Ur Leukocyte Esterase Negative RPR Titer 01/07/17 06:00 WBC RBC Hgb Hct MCV MCH MCHC RDW Plt Count MPV Sodium Potassium Chloride Carbon Dioxide Anion Gap BUN Creatinine Creat Clearance w eGFR Random Glucose Calcium Total Bilirubin AST ALT Alkaline Phosphatase Total Protein Albumin Urine Color Urine Appearance Urine pH Ur Specific [place] Urine Protein Urine Glucose (UA) Urine Ketones Urine Blood Urine Nitrite Urine Bilirubin Urine Urobilinogen Ur Leukocyte Esterase RPR Titer Nonreactive awake/alert ambulating no acute distress Assessment: 01/08/17 10:36 withdrawal sx Plan: continue detox increase fluids
[2017-01-08] MEDS: FLUoxetine HCL 10 MG CAPSULE (FP) PO SCH (10:36)
[2017-01-08] MEDS: NICOTINE 21 MG/24 HOURS TOPICAL PATCH TD SCH (10:36)
[2017-01-08] MEDS: PRENATAL VITAMINS W/ FOLIC ACID TABLET (FP) PO SCH (10:36)
[2017-01-08] MEDS: HALOPERIDOL 5 MG TABLET (FP) PO SCH ×2 (10:36→23:05)
--- NOTE | 2017-01-08 12:24 | EKG ---
Test Reason : Blood Pressure : / mmHG Vent. Rate : 057 BPM Atrial Rate : 057 BPM P-R Int : 154 ms QRS Dur : 080 ms QT Int : 434 ms P-R-T Axes : 061 068 055 degrees QTc Int : 422 ms SINUS BRADYCARDIA OTHERWISE NORMAL ECG WHEN COMPARED WITH ECG OF 15-NOV-2016 20:36, NO SIGNIFICANT CHANGE WAS FOUND Confirmed by KP GARCIA MD ([id number]) on 01/08/2017 12:23:59 PM Referred By: Confirmed By:KP GARCIA MD
[2017-01-08] MEDS: chlordiazePOXIDE 5 MG CAPSULE PO SCH ×2 (17:46→22:21)
[2017-01-08] MEDS: QUEtiapine FUMARATE 100 MG TABLET (FP) PO SCH (23:04)
[2017-01-08] MEDS: THIAMINE HCL 100 MG TABLET (FP) PO SCH (23:05)
[2017-01-09] MEDS: chlordiazePOXIDE 5 MG CAPSULE PO SCH ×2 (06:15→12:02)
[2017-01-09] MEDS: PRENATAL VITAMINS W/ FOLIC ACID TABLET (FP) PO SCH (10:48)
[2017-01-09] MEDS ORDERED: HALOPERIDOL 5 MG TABLET (FP) PO SCH (10:51)
[2017-01-09] MEDS: NICOTINE 21 MG/24 HOURS TOPICAL PATCH TD SCH (10:51)
--- NOTE | 2017-01-09 10:53 | PN ---
Psychiatric Progress Note Vital Signs: Vital Signs Period Temp Pulse Resp BP Sys/Mendes Pulse Ox Last 24 Hr 97.2 F-98.2 F 50-62 16-18 97-101/60-61 Date of Session: 01/09/17 Chief Complaint:: Sedation HPI: As per nursing stuff patiebnt is oversedated since today am, current medications ARE: Prozac 10 mg po daily, Haldol 10 mg po BID, Seroquel 100 mg po HS and Trazadone 100 mg po HS prn for insomnia. Current Medications: Active Medications Generic Name Dose Route Start Last Admin Trade Name Freq PRN Reason Stop Dose Admin Acetaminophen 650 mg 01/06/17 13:55 Tylenol - PO Q4H PRN FEVER OR PAIN Al Hydroxide/Mg Hydroxide 30 ml 01/06/17 13:55 Mylanta Oral Suspension - PO Q6H PRN DYSPEPSIA Chlordiazepoxide HCl 10 mg 01/09/17 17:00 Librium - PO 01/10/17 11:01 [id number] CONCHITA Chlordiazepoxide HCl 25 mg 01/06/17 13:55 Librium - PO 01/09/17 13:54 Q4H PRN WITHDRAWAL(CONT SUBST) Chlordiazepoxide HCl 15 mg 01/08/17 17:00 01/09/17 06:15 Librium - PO 01/09/17 11:01 15 mg [id number] CONCHITA Administration Diphenhydramine HCl 50 mg 01/06/17 22:00 01/06/17 22:03 Benadryl - PO 50 mg HSMR1 PRN Administration INSOMNIA Eucalyptus/Menthol/Phenol/Sorbitol 1 each 01/06/17 13:55 Cepastat Lozenge - MM Q4H PRN SORE THROAT Fluoxetine HCl 10 mg 01/09/17 22:00 Prozac - PO HS CONCHITA Guaifenesin 10 ml 01/06/17 13:55 Robitussin Dm - PO Q6H PRN COUGH Haloperidol 5 mg 01/09/17 10:51 Haldol - PO BID CONCHITA Hydroxyzine Pamoate 50 mg 01/06/17 13:55 Vistaril - PO Q4H PRN AGITATION Ibuprofen 400 mg 01/06/17 13:55 Motrin - PO Q6H PRN SEVERE PAIN Loperamide HCl 4 mg 01/06/17 13:55 Imodium - PO Q6H PRN DIARRHEA Magnesium Citrate 300 ml 01/06/17 13:55 Citroma - PO Q48H PRN CONSTIPATION Magnesium Hydroxide 30 ml 01/06/17 13:55 01/07/17 18:58 Milk Of Magnesia - PO 30 ml DAILY PRN Administration CONSTIPATION Nicotine 21 mg 01/07/17 10:00 01/09/17 10:51 Nicoderm Patch - TD Not Given DAILY CONCHITA Nicotine Polacrilex 4 mg 01/06/17 13:55 Nicorette Gum - BUC Q2H PRN NICOTINE REPLACEMENT RX Multivit/Folic Acid/Iron 1 tab 01/07/17 10:00 01/09/17 10:48 Vitamins (Sjr) - PO 1 tab DAILY CONCHITA Administration Pseudoephedrine/Triprolidine 1 combo 01/06/17 16:52 Actifed - PO TID PRN NASAL CONGESTION Quetiapine Fumarate 100 mg 01/07/17 22:00 01/08/17 23:04 Seroquel - PO Not Given HS CONCHITA Thiamine HCl 100 mg 01/06/17 22:00 01/08/17 23:05 Vitamin B1 - PO Not Given HS CONCHITA Trazodone HCl 100 mg 01/07/17 11:44 01/07/17 22:10 Desyrel - PO 100 mg HS PRN Administration INSOMNIA Medication(s) Change(s): Taper Haldol to 5mg po bid. Switch Prozac to 10mg poqd to 10mg po qhs Mental Status Exam - Mental Status Exam Alert and Oriented to: Person Cognitive Function: Fair Patient Appearance: Unkempt Mood: Sad Affect: Flat Patient Behavior: Sedated Speech Pattern: Delayed Voice Loudness: Mildly Soft/Quiet Thought Process: Goal Oriented Thought Disorder: Being Controlled Hallucinations: Denies Suicidal Ideation: Denies Homicidal Ideation: Denies Insight/Judgement: Fair Sleep: Fair Appetite: Fair Muscle strength/Tone: Mild Hypotonicity Gait/Station: Shuffling Additional Comments: Taper Haldol to 5mg po bid. Switch Prozac to 10mg poqd to 10mg po qhs Psychiatric Treatment Plan - Problem List (1) PTSD (post-traumatic stress disorder) Current Visit: Yes (2) Paranoid schizophrenia Current Visit: Yes (3) Cannabis dependence, uncomplicated Current Visit: Yes (4) Cocaine dependence, uncomplicated Current Visit: Yes (5) Nicotine dependence Current Visit: Yes Qualifiers: Nicotine product type: cigarettes Substance use status: in withdrawal Qualified Code(s): F17.213 - Nicotine dependence, cigarettes, with withdrawal Initial treatment plan: Taper Haldol to 5mg po bid. Switch Prozac to 10mg poqd to 10mg po qhs
[2017-01-09] MEDS: HALOPERIDOL 5 MG TABLET (FP) PO SCH (12:02)
[2017-01-09] MEDS: FLUoxetine HCL 10 MG CAPSULE (FP) PO SCH (12:03)
--- NOTE | 2017-01-09 12:15 | PN ---
BHS Progress Note (SOAP) Subjective: Fatigue, Anxious. Objective: PT. A & O X 2 (DISORIENTED ABOUT DAY / DATE). NO ACUTE DISTRESS. 01/09/17 12:12 Vital Signs Temperature 97.7 F 01/09/17 10:00 Pulse Rate 57 L 01/09/17 10:00 Respiratory Rate 16 01/09/17 10:00 Blood Pressure 106/78 01/09/17 10:00 O2 Sat by Pulse Oximetry (%) Laboratory Tests 01/06/17 01/07/17 01/07/17 15:30 06:00 06:00 WBC 6.2 RBC 4.23 Hgb 12.1 Hct 36.7 MCV 86.9 MCH 28.7 MCHC 33.1 RDW 15.5 Plt Count 229 D MPV 10.0 Sodium 138 Potassium 4.6 Chloride 102 Carbon Dioxide 26 Anion Gap 10 BUN 13 Creatinine 1.0 Creat Clearance w eGFR 57.35 Random Glucose 81 D Calcium 9.6 Total Bilirubin 0.3 AST 48 H D ALT 39 D Alkaline Phosphatase 75 Total Protein 7.7 D Albumin 3.9 D Urine Color Yellow Urine Appearance Clear Urine pH 5.0 Ur Specific [place] 1.025 Urine Protein Negative Urine Glucose (UA) Negative Urine Ketones Trace H Urine Blood Negative Urine Nitrite Negative Urine Bilirubin Negative Urine Urobilinogen Negative Ur Leukocyte Esterase Negative RPR Titer 01/07/17 06:00 WBC RBC Hgb Hct MCV MCH MCHC RDW Plt Count MPV Sodium Potassium Chloride Carbon Dioxide Anion Gap BUN Creatinine Creat Clearance w eGFR Random Glucose Calcium Total Bilirubin AST ALT Alkaline Phosphatase Total Protein Albumin Urine Color Urine Appearance Urine pH Ur Specific [place] Urine Protein Urine Glucose (UA) Urine Ketones Urine Blood Urine Nitrite Urine Bilirubin Urine Urobilinogen Ur Leukocyte Esterase RPR Titer Nonreactive LABS NOTED. Assessment: 01/09/17 12:13 WITHDRAWAL SYMPTOMS. Plan: CONTINUE DETOX.
[2017-01-09] MEDS: chlordiazePOXIDE HCL 10 MG CAPSULE PO SCH ×2 (17:15→22:06)
[2017-01-09] MEDS ORDERED: FLUoxetine HCL 10 MG CAPSULE (FP) PO SCH (22:00)
[2017-01-09] MEDS: THIAMINE HCL 100 MG TABLET (FP) PO SCH (22:06)
[2017-01-09] MEDS: QUEtiapine FUMARATE 100 MG TABLET (FP) PO SCH (22:07)
[2017-01-10] MEDS: chlordiazePOXIDE HCL 10 MG CAPSULE PO SCH (05:50)
[2017-01-10 07:02] VITALS: BP 90/50; PULSE 54; TEMP 97.3
--- NOTE | 2017-01-10 10:19 | DS ---
[facility] Detox Discharge Summary Admission Date: 01/06/17 Discharge Date: 01/10/17 - History Present History: Alcohol Dependence, Cannabis Dependence, Cocaine Dependence - Physical Exam Results Vital Signs: Vital Signs Temperature 97.3 F L 01/10/17 07:01 Pulse Rate 54 L 01/10/17 07:01 Respiratory Rate 16 01/10/17 07:01 Blood Pressure 90/50 01/10/17 07:01 O2 Sat by Pulse Oximetry (%) - Treatment Hospital Course: Detox Protocol Followed, Detoxed Safely, Responded well, Discharged Condition Good, Rehab Referral Accepted - Medication Discharge Medications: Ambulatory Orders Fluoxetine HCl [Prozac -] 10 mg PO DAILY 03/28/16 Haloperidol [Haldol -] 10 mg PO BID 03/28/16 Quetiapine Fumarate [Seroquel] 100 mg PO HS #30 tablet 09/05/16 Trazodone HCl [Desyrel -] 100 mg PO HS #30 tablet 09/05/16 Albuterol Sulfate Inhaler - [Ventolin HFA Inhaler -] 2 inh IH Q4H PRN #1 inh 11/30 - Diagnosis (1) Alcohol dependence with withdrawal Current Visit: Yes Status: Chronic Qualifiers: Complication of substance-induced condition: uncomplicated Qualified Code(s): F10.230 - Alcohol dependence with withdrawal, uncomplicated (2) Asthma Current Visit: Yes Status: Chronic Qualifiers: Asthma severity: mild intermittent Asthma complication type: uncomplicated Qualified Code(s): J45.20 - Mild intermittent asthma, uncomplicated (3) Cannabis dependence, uncomplicated Current Visit: Yes Status: Chronic (4) Cocaine dependence, uncomplicated Current Visit: Yes Status: Chronic (5) Nicotine dependence Current Visit: Yes Status: Chronic Qualifiers: Nicotine product type: cigarettes Substance use status: in withdrawal Qualified Code(s): F17.213 - Nicotine dependence, cigarettes, with withdrawal (6) Schizophrenia Current Visit: No Status: Chronic Qualifiers: Schizophrenia type: paranoid schizophrenia Qualified Code(s): F20.0 - Paranoid schizophrenia - AMA Did Patient Leave Against Medical Advice: No
== END 2017-01-10 09:27 | disposition home or self-care (01) | DRG 774 ==
LOC: YASAS 10:05 → Y6N 15:18
PROVIDERS: ADMIT Internal Medicine; ATTEND Internal Medicine
PROC: HZ2ZZZZ Detoxification Services for Substance Abuse Treatment (ICD-10-PCS; principal; 2017-01-10)
DX: F10.230 Alcohol dependence with withdrawal, uncomplicated (principal); F14.20 Cocaine dependence, uncomplicated; F12.20 Cannabis dependence, uncomplicated; F17.210 Nicotine dependence, cigarettes, uncomplicated; F20.0 Paranoid schizophrenia; F43.10 Post-traumatic stress disorder, unspecified; J45.20 Mild intermittent asthma, uncomplicated
CPT/HCPCS: 36415; 80053; 81003; 85027; 86593; 93005; 93010

== ENCOUNTER 2017-03-25 10:05 | Inpatient (IN) | payer OTHER ==
[2017-03-25 10:21] VITALS: BMI 20.5
--- NOTE | 2017-03-25 15:46 | HP ---
CIWA Score - CIWA Score Nausea/Vomitin-No Nausea/No Vomiting Muscle Tremors: 3 Anxiety: 3 Agitation: 3 Paroxysmal Sweats: 3 Orientation: 1-Uncertain about Date Tacttile Disturbances: 0-None Auditory Disturbances: 0-None Visual Disturbances: 0-None Headache: 3-Moderate CIWA-Ar Total Score: 16 Admission ROS BHS - HPI Chief Complaint: "I need help." Pt. is here to Detox from Alcohol. Allergies/Adverse Reactions: Allergies Allergy/AdvReac Type Severity Reaction Status Date / Time Penicillins Allergy Severe Hives Verified 03/25/17 12:13 History of Present Illness: Pt. is a 56 YO female here to Detox from Alcohol. Pt. has had several previous Detox admissions at [facility] in the past; Last Detox admission at [facility]; 12/2016. Exam Limitations: No Limitations - Ebola screening Have you traveled outside of the country in the last 21 days: No Have you had contact with anyone from an Ebola affected area: No Have you been sick,other than usual withdrawal symptoms: No Do you have a fever: No - Review of Systems Constitutional: Diaphoresis, Loss of Appetite, Malaise, Night Sweats, Changes in sleep, Unintentional Wgt. Loss (Lost approx. 10 lbs over last few months.) EENT: reports: Tearing, Other (Upper Denture.) Respiratory: reports: No Symptoms reported Cardiac: reports: No Symptoms Reported GI: reports: Poor Appetite : reports: No Symptoms Reported Musculoskeletal: reports: Joint Pain (Right Hip.) Integumentary: reports: No Symptoms Reported Neuro: reports: Headache, Tremors Endocrine: reports: No Symptoms Reported Hematology: reports: No Symptoms Reported Psychiatric: reports: Judgement Intact, Mood/Affect Appropiate, Anxious, Disorientated (About current date.), other (PTSD (on meds.).) Other Systems: Reviewed and Negative Patient History - Patient Medical History Hx Anemia: No Hx Asthma: Yes (Uses Albuterol Inhaler.) Hx Chronic Obstructive Pulmonary Disease (COPD): No Hx Cancer: No Hx Cardiac Disorders: No Hx Congestive Heart Failure: No Hx Hypertension: No Hx Hypercholesterolemia: No Hx Pacemaker: No HX Cerebrovascular Accident: No Hx Seizures: No Hx Dementia: No Hx Diabetes: No Hx Gastrointestinal Disorders: No Hx Liver Disease: No Hx Genitourinary Disorders: No Hx Sexually Transmitted Disorders: No Hx Renal Disease (ESRD): No Hx Thyroid Disease: No Hx Human Immunodeficiency Virus (HIV): No (NEGATIVE HISTORY.) Hx Hepatitis C: No (NEGATIVE HISTORY.) Hx Depression: Yes (PTSD: On meds.) Hx Suicide Attempt: Yes (Pt states she tried to cut herself in 2015; PATIENT DENIES CURRENT SI / HI.) Hx Bipolar Disorder: No Hx Schizophrenia: Yes (On meds.) Other Medical History: DENIES. - Patient Surgical History Past Surgical History: Yes Hx Neurologic Surgery: No Hx Cataract Extraction: No Hx Cardiac Surgery: No Hx Lung Surgery: No Hx Breast Surgery: No Hx Breast Biopsy: No Hx Abdominal Surgery: No Hx Appendectomy: No Hx Cholecystectomy: No Hx Genitourinary Surgery: No Hx Section: No Hx Orthopedic Surgery: Yes (right heel surgery 2009 for Heel Spur.) Hx Hysterectomy: Yes (2013) Other Surgical History: Total hysterectomy in 2009 from fibroids Anesthesia Reaction: No - PPD History Previous Implant?: Yes Documented Results: Positive w/proof Implanted On Prior [facility] Admission?: No Results: CXR - 03/31 PPD to be Administered?: No - Reproductive History Patient is a Female of Child Bearing Age (11 -55 yrs old): No LMP comment: Menses Stopped @ 1999. Patient : No - Smoking Cessation Smoking history: Current every day smoker Have you smoked in the past 12 months: Yes Aproximately how many cigarettes per day: 10 Cigars Per Day: 0 Hx Chewing Tobacco Use: No Initiated information on smoking cessation: Yes 'Breaking Loose' booklet given: 03/25/17 (GIVEN TO PATIENT.) - Substance & Tx. History Hx Alcohol Use: Yes Hx Substance Use: Yes Substance Use Type: Alcohol, Cocaine, Marijuana Hx Substance Use Treatment: Yes (Previous detox admissions at [facility]; Last Admission: 12/2016.) - Substances Abused Alcohol Route: Oral Frequency: Daily Amount used: 1/2 P[place] Age of first use: 20 Date of Last Use: 03/24/17 Crack Route: Smoking Frequency: 1-3 times last 30 days Amount used: $200-300 Age of first use: 36 Date of Last Use: 03/23/17 Marijuana/Hashish Route: Smoking Frequency: Daily Amount used: $10 Age of first use: 16 Date of Last Use: 03/23/17 Family Disease History - Family Disease History Family Disease History: Diabetes: Father (etoh), Other: Father, Mother ( ) Admission Physical Exam BHS - Vital Signs Vital Signs: Vital Signs - 24 hr 03/25/17 10:18 Temperature 97.3 F L Pulse Rate 60 Respiratory 18 Rate Blood Pressure 105/60 - Physical General Appearance: Yes: No Apparent Distress, Nourished, Appropriately Dressed , Tremorous, Irritable, Anxious HEENTM: Yes: Hearing grossly Normal, Normocephalic, Normal Voice, ISABEL, Pharynx Normal Respiratory: Yes: Chest Non-Tender, Lungs Clear, No Respiratory Distress, No Accessory Muscle Use Neck: Yes: No masses,lesions,Nodules, Supple, Trachea in good position Breast: Yes: Breast Exam Deferred Cardiology: Yes: Regular Rhythm, Regular Rate, S1, S2 Abdominal: Yes: Normal Bowel Sounds, Non Tender, Flat, Soft Genitourinary: Yes: Within Normal Limits Back: Yes: Normal Inspection Musculoskeletal: Yes: Gait Steady, Joint Stiffness Extremities: Yes: Non-Tender, Tremors Neurological: Yes: Alert, Normal Mood/Affect, Normal Response, Disoriented (To Current Date.) Integumentary: Yes: Normal Color, Dry, Warm Lymphatic: Yes: Within Normal Limits - Diagnostic (1) Alcohol dependence with withdrawal Current Visit: Yes Status: Acute Qualifiers: Complication of substance-induced condition: uncomplicated Qualified Code(s): F10.230 - Alcohol dependence with withdrawal, uncomplicated; F10.230 - Alcohol dependence with withdrawal, uncomplicated; F10.230 - Alcohol dependence with withdrawal, uncomplicated (2) Asthma Current Visit: Yes Status: Chronic Qualifiers: Asthma severity: mild Asthma persistence: intermittent Asthma complication type: uncomplicated Qualified Code(s): J45.20 - Mild intermittent asthma, uncomplicated; J45.20 - Mild intermittent asthma, uncomplicated; J45.20 - Mild intermittent asthma, uncomplicated (3) Cannabis dependence, uncomplicated Current Visit: Yes Status: Acute (4) Cocaine dependence, uncomplicated Current Visit: Yes Status: Acute (5) Nicotine dependence Current Visit: Yes Status: Chronic Qualifiers: Nicotine product type: cigarettes Substance use status: in withdrawal Qualified Code(s): F17.213 - Nicotine dependence, cigarettes, with withdrawal; F17.213 - Nicotine dependence, cigarettes, with withdrawal (6) History of posttraumatic stress disorder (PTSD) Current Visit: Yes Status: Chronic (7) History of schizophrenia Current Visit: Yes Status: Chronic Cleared for Admission [facility] - Detox or Rehab [facility] Level of Care: Medically Managed Detox Regimen/Protocol: Librium [facility] Breath Alcohol Content Breath Alcohol Content: 0 Urine Pregancy Test - Result Urine Test Results: Negative- NO Line Present Urine Drug Screen - Results Drug Screen Negative: No Urine Drug Screen Results: THC-Marijuana, MARGO-Cocaine
[2017-03-25] MEDS ORDERED: P-EPHED 60MG/TRIPROLIDI 2.5MG TABLET PO PRN (16:09)
[2017-03-25] MEDS ORDERED: MAG HYDROX/AL HYDROX/SIMETH 30 ML UNIT-DOSE CUP PO PRN (16:09)
[2017-03-25] MEDS ORDERED: MAGNESIUM HYDROX 2400MG/30ML ORAL SUSPENSION 30 ML CUP PO PRN (16:09)
[2017-03-25] MEDS ORDERED: MENTHOL/PHENOL 1 EACH UD MM PRN (16:09)
[2017-03-25] MEDS ORDERED: diphenhydrAMINE HCL 50 MG CAPSULE PO PRN (16:09)
[2017-03-25] MEDS ORDERED: ACETAMINOPHEN 325 MG TABLET (FP) PO PRN (16:09)
[2017-03-25] MEDS ORDERED: chlordiazePOXIDE HCL 25 MG CAPSULE PO PRN (16:09)
[2017-03-25] MEDS ORDERED: hydrOXYzine PAMOATE 50 MG CAPSULE (FP) PO PRN (16:09)
[2017-03-25] MEDS ORDERED: IBUPROFEN 400 MG TABLET (FP) PO PRN (16:09)
[2017-03-25] MEDS ORDERED: guaiFENesin/D-METHORPHAN HB 10 ML UNIT-DOSE CUPS PO PRN (16:09)
[2017-03-25] MEDS ORDERED: MAGNESIUM CITRATE 300 ML BOTTLE PO PRN (16:09)
[2017-03-25] MEDS ORDERED: LOPERAMIDE HCL 2 MG CAPSULE PO PRN (16:09)
[2017-03-25] MEDS ORDERED: ALBUTEROL SO4 18 GM HFA INHALER IH PRN (16:12)
[2017-03-25] MEDS ORDERED: chlordiazePOXIDE HCL 25 MG CAPSULE PO ONE (16:45)
[2017-03-25] MEDS: chlordiazePOXIDE HCL 25 MG CAPSULE PO SCH ×2 (17:20→22:44)
[2017-03-25] MEDS: THIAMINE HCL 100 MG TABLET (FP) PO SCH (22:44)
[2017-03-26] MEDS: chlordiazePOXIDE HCL 25 MG CAPSULE PO SCH ×4 (06:31→22:45)
--- NOTE | 2017-03-26 11:18 | PN ---
S CIWA - CIWA Score Nausea/Vomitin-No Nausea/No Vomiting Muscle Tremors: 3 Anxiety: 3 Agitation: 3 Paroxysmal Sweats: 3 Orientation: 0-Oriented Tacttile Disturbances: 0-None Auditory Disturbances: 0-None Visual Disturbances: 0-None Headache: 0-None Present CIWA-Ar Total Score: 12 S Progress Note (SOAP) Subjective: sweats shakes interrupted sleep agitation body aches irritable Objective: 03/26/17 11:15 Vital Signs Temperature 97.7 F 03/26/17 06:35 Pulse Rate 65 03/26/17 06:35 Respiratory Rate 16 03/26/17 06:35 Blood Pressure 90/65 03/26/17 06:35 O2 Sat by Pulse Oximetry (%) Laboratory Tests 03/25/17 19:00 Urine Color Cancelled Urine Appearance Cancelled Urine pH Cancelled Ur Specific [place] Cancelled Urine Protein Cancelled Urine Glucose (UA) Cancelled Urine Ketones Cancelled Urine Blood Cancelled Urine Nitrite Cancelled Urine Bilirubin Cancelled Urine Urobilinogen Cancelled Ur Leukocyte Esterase Cancelled labs ordered u/a ordered awake/alert lying in bed no acute distress Assessment: 03/26/17 11:22 withdrawal sx Plan: continue detox increase fluids f/u pending labs ordered
[2017-03-26] MEDS: PRENATAL VITAMINS W/ FOLIC ACID TABLET (FP) PO SCH (11:28)
--- NOTE | 2017-03-26 13:17 | EKG ---
Test Reason : Blood Pressure : / mmHG Vent. Rate : 050 BPM Atrial Rate : 050 BPM P-R Int : 154 ms QRS Dur : 074 ms QT Int : 442 ms P-R-T Axes : 071 077 073 degrees QTc Int : 402 ms SINUS BRADYCARDIA OTHERWISE NORMAL ECG WHEN COMPARED WITH ECG OF 06-JAN-2017 14:52, NO SIGNIFICANT CHANGE WAS FOUND Confirmed by KP GARCIA MD ([id number]) on 03/26/2017 1:16:58 PM Referred By: Agus Issa Confirmed By:KP GARCIA MD
--- NOTE | 2017-03-26 16:59 | CONSULT ---
[facility] Psychiatric Consult - Data Date of interview: 03/26/17 Admission source: [facility] Identifying data: Readmission to [facility] for this 56 y/o AA female seeking detox treatment on for alcohol,cocaine and cannabis dependence.Patient is single without children,domiciled,unemployed and supported on SSI benefits. Substance Abuse History: Discussed in this encounter.Patient confirmed abuse/ dependence described in this report. Smoking Cessation. Smoking history: Current every day smoker. Have you smoked in the past 12 months: Yes. Aproximately how many cigarettes per day: 10. Cigars Per Day: 0. Hx Chewing Tobacco Use: No. Initiated information on smoking cessation: Yes. 'Breaking Loose' booklet given: 03/25/17 (GIVEN TO PATIENT.). - Substance & Tx. History. Hx Alcohol Use: Yes. Hx Substance Use: Yes. Substance Use Type: Alcohol, Cocaine, Marijuana. Hx Substance Use Treatment: Yes (Previous detox admissions at [facility]; Last Admission: 12/2016.). - Substances Abused. Alcohol. Route: Oral. Frequency: Daily. Amount used: 1/2 [place]. Age of first use: 20. Date of Last Use: 03/24/17. Crack. Route: Smoking. Frequency: 1-3 times last 30 days. Amount used: $200-300. Age of first use: 36. Date of Last Use: 03/23/17. Marijuana/Hashish. Route: Smoking. Frequency: Daily. Amount used: $10. Age of first use: 16. Date of Last Use: 03/23/17 Medical History: History of bronchial asthma and total hysterectomy in 2009 ( fibroids). Psychiatric History: Extensive history of mental illness.Multiple psychiatric hospitalizations ([facility] ).Discharged in November 2016 from [facility] in [facility].Diagnosed with Paranoid Schizophrenia and PTSD.Ms Alston declares that she is prescribed haldol,cogentin,seroquel and prozac (doses not recalled).She states that she gets outpatient psychiatric services at [facility].Questionable historian.Remote history of suicidal ideation to jump in front of a subway train (years ago) and self-mutilation (cutting). Physical/Sexual Abuse/Trauma History: Patient declines to discuss this domain. Additional Comment: Urine Drug Screen Results: THC-Marijuana, MARGO-Cocaine.Noted. Mental Status Exam - Mental Status Exam Alert and Oriented to: Place, Person Cognitive Function: Impaired Patient Appearance: Unkempt (small habitus), Disheveled, Bizarre Mood: Withdrawn Affect: Mood Congruent, Constricted Patient Behavior: Passive, Sedated, Fatigued, Cooperative (superficially) Speech Pattern: Delayed, Slurred Voice Loudness: Moderately Soft/Quiet Thought Process: Goal Oriented Thought Disorder: Not Present, Bizarre Hallucinations: Denies Suicidal Ideation: Denies Homicidal Ideation: Denies Insight/Judgement: Poor Sleep: Poorly (self-report), Difficulty falling asleep Appetite: Poor, Weight loss Gait/Station: Other (not observed : patient is in bed through entire evaluation) Psychiatric Findings - Problem List ([place] 1, 2,3) (1) Alcohol dependence with withdrawal Current Visit: Yes Status: Acute Qualifiers: Complication of substance-induced condition: uncomplicated Qualified Code(s): F10.230 - Alcohol dependence with withdrawal, uncomplicated; F10.230 - Alcohol dependence with withdrawal, uncomplicated; F10.230 - Alcohol dependence with withdrawal, uncomplicated (2) Cannabis dependence, uncomplicated Current Visit: Yes Status: Acute (3) Cocaine dependence, uncomplicated Current Visit: Yes Status: Acute (4) Nicotine dependence Current Visit: Yes Status: Acute Qualifiers: Nicotine product type: cigarettes Substance use status: in withdrawal Qualified Code(s): F17.213 - Nicotine dependence, cigarettes, with withdrawal; F17.213 - Nicotine dependence, cigarettes, with withdrawal (5) PTSD (post-traumatic stress disorder) Current Visit: Yes Status: Chronic (6) Schizophrenia Current Visit: Yes Status: Chronic Qualifiers: Schizophrenia type: unspecified Qualified Code(s): F20.9 - Schizophrenia, unspecified; F20.9 - Schizophrenia, unspecified; F20.9 - Schizophrenia, unspecified; F20.9 - Schizophrenia, unspecified Comment: By history. (7) Asthma Current Visit: Yes Status: Chronic Qualifiers: Asthma severity: mild Asthma persistence: intermittent Asthma complication type: uncomplicated Qualified Code(s): J45.20 - Mild intermittent asthma, uncomplicated; J45.20 - Mild intermittent asthma, uncomplicated; J45.20 - Mild intermittent asthma, uncomplicated (8) Insomnia Current Visit: Yes Status: Acute - Initial Treatment Plan Initial Treatment Plan: Previous records are reviewed.Patient is prone to oversedation and bradycardia.Chronically non-adherent to OPD care and known as an unreliable historian.Contact made with pharmacist at [phone] ([facility]) : script found for seroquel 100 mg/hs on 02/28/17 ; no recent record for haldol,prozac or cogentin (dates back to August 2016).Will observe the patient without medications for another 24 hours.Re-evaluation on 03/27/17.
[2017-03-26] MEDS: THIAMINE HCL 100 MG TABLET (FP) PO SCH (22:45)
[2017-03-27] MEDS: chlordiazePOXIDE HCL 25 MG CAPSULE PO SCH ×2 (07:54→10:39)
[2017-03-27 09:28] LABS: EOSINOPHIL 2.4 % (0-4.5); MCH 27.8 pg (25.7-33.7); MCHC 32.1 g/dl (32.0-36.0); MEAN CELL VOLUME 86.7 fl (80-96); MEAN PLT VOLUME 9.4 fl (7.5-11.1); NEUTROPHILS 36.9 % (42.8-82.8); PLATELET COUNT 222 K/MM3 (134-434); RDW 13.7 % (11.6-15.6)
[2017-03-27 09:42] LABS: SGOT/AST 13 U/L (15-37); SGPT/ALT 19 U/L (12-78)
[2017-03-27 09:48] LABS: ALBUMIN 3.3 g/dl (3.4-5.0); ALK PHOS 61 U/L (45-117); ANION GAP 7 (8-16); BILIRUBIN,TOTAL 0.2 mg/dL (0.2-1.0); CO2 27 mmol/L (21-32); CREATININE 0.9 mg/dL (0.55-1.02); GLUCOSE,RANDOM 77 mg/dL (74-106); TOT PROT 6.5 g/dl (6.4-8.2)
[2017-03-27] MEDS: PRENATAL VITAMINS W/ FOLIC ACID TABLET (FP) PO SCH (10:38)
--- NOTE | 2017-03-27 11:31 | PN ---
[facility] CIWA - CIWA Score Nausea/Vomitin-No Nausea/No Vomiting Muscle Tremors: 4-Moderate,w/Arms Extend Anxiety: 3 Agitation: 3 Paroxysmal Sweats: 3 Orientation: 0-Oriented Tacttile Disturbances: 0-None Auditory Disturbances: 0-None Visual Disturbances: 0-None Headache: 0-None Present CIWA-Ar Total Score: 13 S Progress Note (SOAP) Subjective: sweats body aches tired interrupted sleep Objective: 03/27/17 11:30 Vital Signs Temperature 97.9 F 03/27/17 11:13 Pulse Rate 44 L 03/27/17 11:13 Respiratory Rate 16 03/27/17 11:13 Blood Pressure 124/69 03/27/17 11:13 O2 Sat by Pulse Oximetry (%) Laboratory Tests 03/25/17 03/27/17 03/27/17 19:00 07:00 07:00 WBC 3.0 L D RBC 4.67 Hgb 13.0 Hct 40.5 MCV 86.7 MCH 27.8 MCHC 32.1 RDW 13.7 D Plt Count 222 MPV 9.4 Neutrophils % 36.9 L Lymphocytes % 49.3 H Monocytes % 10.4 H Eosinophils % 2.4 Basophils % 1.0 Sodium 142 Potassium 4.3 Chloride 108 H Carbon Dioxide 27 Anion Gap 7 L BUN 8 D Creatinine 0.9 Creat Clearance w eGFR > 60 Random Glucose 77 Calcium 9.0 Total Bilirubin 0.2 D AST 13 L D ALT 19 D Alkaline Phosphatase 61 Total Protein 6.5 Albumin 3.3 L Urine Color Cancelled Urine Appearance Cancelled Urine pH Cancelled Ur Specific [place] Cancelled Urine Protein Cancelled Urine Glucose (UA) Cancelled Urine Ketones Cancelled Urine Blood Cancelled Urine Nitrite Cancelled Urine Bilirubin Cancelled Urine Urobilinogen Cancelled Ur Leukocyte Esterase Cancelled RPR Titer 03/27/17 07:00 WBC RBC Hgb Hct MCV MCH MCHC RDW Plt Count MPV Neutrophils % Lymphocytes % Monocytes % Eosinophils % Basophils % Sodium Potassium Chloride Carbon Dioxide Anion Gap BUN Creatinine Creat Clearance w eGFR Random Glucose Calcium Total Bilirubin AST ALT Alkaline Phosphatase Total Protein Albumin Urine Color Urine Appearance Urine pH Ur Specific [place] Urine Protein Urine Glucose (UA) Urine Ketones Urine Blood Urine Nitrite Urine Bilirubin Urine Urobilinogen Ur Leukocyte Esterase RPR Titer Nonreactive aaox3 ambulating no acute distress Assessment: 03/27/17 11:31 withdrawal sx Plan: continue detox increase fluids
--- NOTE | 2017-03-27 14:01 | PN ---
[facility] Progress Note Note: pt refused to complete detox, staff spoke to pt to try to reason with her but pt insisted on leaving. pt signed out AMA.
--- NOTE | 2017-03-27 14:06 | DS ---
[facility] Detox Discharge Summary Admission Date: 03/25/17 - History Present History: Alcohol Dependence, Cannabis Dependence, Cocaine Dependence - Physical Exam Results Vital Signs: Vital Signs Temperature 97.9 F 03/27/17 11:13 Pulse Rate 44 L 03/27/17 11:13 Respiratory Rate 16 03/27/17 11:13 Blood Pressure 124/69 03/27/17 11:13 O2 Sat by Pulse Oximetry (%) - Treatment Hospital Course: Detox Protocol Followed, Detoxed Safely, Responded well, Discharged Condition Good, Rehab Referral Accepted - Medication Discharge Medications: Ambulatory Orders Fluoxetine HCl [Prozac -] 10 mg PO DAILY 03/28/16 Haloperidol [Haldol -] 10 mg PO BID 03/28/16 Quetiapine Fumarate [Seroquel] 100 mg PO HS #30 tablet 09/05/16 Trazodone HCl [Desyrel -] 100 mg PO HS #30 tablet 09/05/16 Albuterol Sulfate Inhaler - [Ventolin HFA Inhaler -] 2 inh IH Q4H PRN #1 inh 11/30 - Diagnosis (1) Alcohol dependence with withdrawal Current Visit: Yes Status: Chronic Qualifiers: Complication of substance-induced condition: uncomplicated Qualified Code(s): F10.230 - Alcohol dependence with withdrawal, uncomplicated; F10.230 - Alcohol dependence with withdrawal, uncomplicated; F10.230 - Alcohol dependence with withdrawal, uncomplicated (2) Cannabis dependence, uncomplicated Current Visit: Yes Status: Chronic (3) Cocaine dependence, uncomplicated Current Visit: Yes Status: Chronic (4) Asthma Current Visit: Yes Status: Chronic Qualifiers: Asthma severity: mild Asthma persistence: intermittent Asthma complication type: uncomplicated Qualified Code(s): J45.20 - Mild intermittent asthma, uncomplicated; J45.20 - Mild intermittent asthma, uncomplicated; J45.20 - Mild intermittent asthma, uncomplicated (5) History of posttraumatic stress disorder (PTSD) Current Visit: Yes Status: Chronic (6) Nicotine dependence Current Visit: Yes Status: Chronic Qualifiers: Nicotine product type: cigarettes Substance use status: uncomplicated Qualified Code(s): F17.210 - Nicotine dependence, cigarettes, uncomplicated; F17.210 - Nicotine dependence, cigarettes, uncomplicated - AMA Did Patient Leave Against Medical Advice: Yes
[2017-03-27 14:08] VITALS: TEMP 97.3
--- NOTE | 2017-03-27 14:43 | PN ---
[facility] Progress Note Note: Psychiatry Attending's note : Came to re-evaluate the patient. Kit Planner is informed that the patient left this program.
[2017-03-27 14:54] VITALS: BP 134/92; PULSE 97
[2017-03-27] MEDS ORDERED: chlordiazePOXIDE 5 MG CAPSULE PO SCH (17:00)
[2017-03-28] MEDS ORDERED: chlordiazePOXIDE HCL 10 MG CAPSULE PO SCH (17:00)
== END 2017-03-27 14:45 | disposition left against medical advice (07) | DRG 770 ==
LOC: YASAS 10:05 → Y6N 13:28
PROVIDERS: ADMIT Internal Medicine; ATTEND Internal Medicine
PROC: HZ2ZZZZ Detoxification Services for Substance Abuse Treatment (ICD-10-PCS; principal; 2017-03-25)
DX: F10.230 Alcohol dependence with withdrawal, uncomplicated (principal); F14.20 Cocaine dependence, uncomplicated; F12.20 Cannabis dependence, uncomplicated; F17.210 Nicotine dependence, cigarettes, uncomplicated; F43.10 Post-traumatic stress disorder, unspecified; F20.9 Schizophrenia, unspecified; J45.20 Mild intermittent asthma, uncomplicated; G47.00 Insomnia, unspecified; Z90.710 Acquired absence of both cervix and uterus; Z88.0 Allergy status to penicillin; Z91.5 Personal history of self-harm
CPT/HCPCS: 36415; 80053; 85025; 86593; 93005; 93010

== ENCOUNTER 2022-08-29 12:38 | Inpatient (IN) | payer OTHER ==
[2022-08-29 14:30] VITALS: BMI 17.2
[2022-08-29] MEDS ORDERED: hydrOXYzine PAMOATE 25 MG CAPSULE (FP) PO PRN (15:01)
[2022-08-29] MEDS ORDERED: BENZOCAINE/MENTHOL (CHLORASEPTIC ) LOZENGE MM PRN (15:01)
[2022-08-29] MEDS ORDERED: NICOTINE POLACRILEX 2 MG GUM BUC PRN (15:01)
[2022-08-29] MEDS ORDERED: BENZONATATE 200 MG CAPSULE PO PRN (15:01)
[2022-08-29] MEDS ORDERED: POLYETHYLENE GLYCOL (HEALTHYLAX) 3350 17 GM PACKET PO PRN (15:01)
[2022-08-29] MEDS ORDERED: MAG HYDROX/AL HYDROX/SIMETH 30 ML UNIT-DOSE CUP PO PRN (15:01)
[2022-08-29] MEDS ORDERED: IBUPROFEN 400 MG TABLET (FP) PO PRN (15:01)
[2022-08-29] MEDS ORDERED: NICOTINE 7 MG/24 HOURS TOPICAL PATCH TD PRN (15:01)
[2022-08-29] MEDS ORDERED: IBUPROFEN 600 MG TABLET (FP) PO PRN (15:01)
[2022-08-29] MEDS ORDERED: LOPERAMIDE HCL 2 MG CAPSULE PO PRN (15:01)
[2022-08-29] MEDS ORDERED: BISMUTH SUBSALICYLATE 524 MG/30 ML PO PRN (15:01)
[2022-08-29] MEDS ORDERED: MAGNESIUM HYDROX 2400MG/30ML ORAL SUSPENSION 30 ML CUP PO PRN (15:01)
[2022-08-29] MEDS ORDERED: LORazepam 1 MG TABLET PO PRN (15:01)
[2022-08-29] MEDS ORDERED: NICOTINE 10 MG CARTRIDGE (INHALER) IH PRN (15:01)
[2022-08-29] MEDS ORDERED: guaiFENesin 600 MG TABLET.ER (FP) PO PRN (15:01)
[2022-08-29] MEDS ORDERED: METHOCARBAMOL 500 MG TABLET PO PRN (15:01)
[2022-08-29] MEDS ORDERED: ONDANSETRON *ODT* 4 MG TABLET SL PRN (15:01)
[2022-08-29] MEDS ORDERED: ALBUTEROL SO4 HFA INHALER IH PRN (15:08)
[2022-08-29] MEDS ORDERED: LORazepam 2 MG TABLET PO SCH (17:00)
[2022-08-29] MEDS ORDERED: LORazepam 1 MG TABLET PO SCH (17:22)
[2022-08-29] MEDS: LORazepam 1 MG TABLET PO SCH ×2 (18:32→23:08)
[2022-08-29] MEDS: THIAMINE HCL 100 MG TABLET (FP) PO SCH (22:07)
[2022-08-29] MEDS: MELATONIN 5 MG TABLETS PO SCH (22:08)
[2022-08-29] MEDS: CLOTRIMAZOLE 1% CREAM TP SCH (22:11)
[2022-08-30] MEDS: LORazepam 1 MG TABLET PO SCH ×4 (06:03→22:00)
[2022-08-30] MEDS: CLOTRIMAZOLE 1% CREAM TP SCH ×2 (10:48→22:23)
[2022-08-30] MEDS: PRENATAL VITAMINS W/ FOLIC ACID TABLET (FP) PO SCH (10:48)
[2022-08-30] MEDS: MELATONIN 5 MG TABLETS PO SCH (21:53)
[2022-08-30] MEDS: QUEtiapine FUMARATE 100 MG TABLET (FP) PO SCH (21:53)
[2022-08-30] MEDS: THIAMINE HCL 100 MG TABLET (FP) PO SCH (21:53)
[2022-08-31] MEDS: LORazepam 1 MG TABLET PO SCH ×4 (05:35→22:40)
[2022-08-31] MEDS: ACETAMINOPHEN 325 MG TABLET (FP) PO PRN (09:01)
[2022-08-31] MEDS: PRENATAL VITAMINS W/ FOLIC ACID TABLET (FP) PO SCH (10:34)
[2022-08-31] MEDS: CLOTRIMAZOLE 1% CREAM TP SCH ×2 (10:34→22:50)
[2022-08-31] MEDS: MELATONIN 5 MG TABLETS PO SCH (22:50)
[2022-08-31] MEDS: QUEtiapine FUMARATE 100 MG TABLET (FP) PO SCH (22:51)
[2022-08-31] MEDS: THIAMINE HCL 100 MG TABLET (FP) PO SCH (22:51)
[2022-09-01] MEDS ORDERED: LORazepam 0.5 MG TABLET PO PRN
[2022-09-01] MEDS: LORazepam 0.5 MG TABLET PO SCH ×4 (05:30→22:55)
[2022-09-01] MEDS: PRENATAL VITAMINS W/ FOLIC ACID TABLET (FP) PO SCH (10:27)
[2022-09-01] MEDS: CLOTRIMAZOLE 1% CREAM TP SCH ×2 (10:28→22:55)
[2022-09-01] MEDS: ACETAMINOPHEN 325 MG TABLET (FP) PO PRN (19:01)
[2022-09-01] MEDS ORDERED: guaiFENesin 200 MG/10 ML 10 ML UNIT-DOSE CUPS PO PRN (20:13)
[2022-09-01] MEDS: MELATONIN 5 MG TABLETS PO SCH (22:54)
[2022-09-01] MEDS: THIAMINE HCL 100 MG TABLET (FP) PO SCH (22:54)
[2022-09-01] MEDS: QUEtiapine FUMARATE 100 MG TABLET (FP) PO SCH (22:55)
[2022-09-02] MEDS ORDERED: LORazepam 0.5 MG TABLET PO ONE (05:00)
[2022-09-02] MEDS: PRENATAL VITAMINS W/ FOLIC ACID TABLET (FP) PO SCH (09:49)
[2022-09-02] MEDS: CLOTRIMAZOLE 1% CREAM TP SCH (09:50)
[2022-09-02 13:27] VITALS: BP 102/51; PULSE 77; RESP 18; TEMP 97.3
== END 2022-09-02 14:00 | disposition home or self-care (01) | DRG 774 ==
LOC: YASAS 12:38 → Y6N 15:28
PROVIDERS: ADMIT Allergy & Immunology; ATTEND Surgery
PROC: HZ2ZZZZ Detoxification Services for Substance Abuse Treatment (ICD-10-PCS; principal; 2022-08-29)
DX: F10.230 Alcohol dependence with withdrawal, uncomplicated (principal); F14.20 Cocaine dependence, uncomplicated; F12.20 Cannabis dependence, uncomplicated; F17.213 Nicotine dependence, cigarettes, with withdrawal; F20.0 Paranoid schizophrenia; F19.282 Other psychoactive substance dependence with psychoactive substance-induced sleep disorder; F19.24 Other psychoactive substance dependence with psychoactive substance-induced mood disorder; F43.10 Post-traumatic stress disorder, unspecified; J45.20 Mild intermittent asthma, uncomplicated; R76.11 Nonspecific reaction to tuberculin skin test without active tuberculosis; Z88.0 Allergy status to penicillin
CPT/HCPCS: 71046-TC-FY; 87811; 93005; 93010; C9803-CS; U0003; U0005